=== PATIENT | female | born 1960 | race Caucasian/White ===

== ENCOUNTER 2019-07-19 13:59 | Inpatient (IN) | payer OTHER ==
[~2019-07-19] VITALS: Ht 162.6 cm; Wt 68.9 kg
[2019-07-19] VITALS (11 sets, daily range): BP systolic 130–218; BP diastolic 60–121
[2019-07-19] MEDS ORDERED: ELIQUIS5 MG PO (14:29)
[2019-07-19] MEDS ORDERED: LOPRESSOR50 MG PO (14:29)
[2019-07-19] MEDS ORDERED: PROTONIX40 M2 PO (14:31)
[2019-07-19] MEDS ORDERED: PIPERACIL-TA3.375 GM IV (14:32)
[2019-07-19] MEDS ORDERED: ALPRAZOLAM XR3 MG PO (14:32)
[2019-07-19] MEDS ORDERED: ONDANSETRON HCL4 M3 PO (14:33)
[2019-07-19] MEDS ORDERED: OMEPRAZOLE 20 M20 M1 PO (14:34)
[2019-07-19] MEDS ORDERED: HUMALOG100 UNIT/1 SUBQ (14:34)
[2019-07-19] MEDS ORDERED: PROSOURCE PLUS30 ML PO (14:35)
[2019-07-19] MEDS ORDERED: TRAMADOL 50 MG50 MG PO (14:35)
[2019-07-19] MEDS ORDERED: [UNRECOGNIZED DRUG - OTHER] PO (14:36)
[2019-07-19 15:22] LABS: ABSOLUTE NEUTROPHILS 18.1 thou/uL (1.4-8.2)
[2019-07-19 15:38] LABS: ALBUMIN 1.8 g/dL (3.4-5.0); CALCIUM 9.2 mg/dL (8.5-10.1); CREATININE 0.6 mg/dL (0.6-1.0); METAMYELOCYTES 7 %; TOTAL BILIRUBIN 0.3 mg/dL (<0.1-1.0); TOTAL PROTEIN 6.4 g/dL (6.4-8.2)
[2019-07-19 15:39] LABS: ANISOCYTOSIS 1+
[2019-07-19 15:40] LABS: HEMATOCRIT 23.2 % (37.0-47.0); HEMOGLOBIN 7.6 gm/dL (12.0-15.0); MCH 29.3 pg (26.0-34.0); MCHC 32.8 % (28.0-37.0); MCV 89.3 fL (80.0-100.0); WBC 22.6 thou/uL (4.0-11.0)
[2019-07-19 15:41] LABS: PLATELET COUNT 520 thou/uL (150-400); RDW 15.1 % (10.5-14.5)
[2019-07-19 17:29] LABS: URINE BILIRUBIN NEGATIVE (Negative); URINE BLOOD 3+ (Negative); URINE CLARITY CLEAR; URINE COLOR YELLOW; URINE GLUCOSE-RANDOM* NEGATIVE (Negative); URINE KETONES NEGATIVE (Negative); URINE LEUKOCYTES-REFLEX 2+ (Negative); URINE NITRITE-REFLEX NEGATIVE (Negative); URINE PROTEIN (DIPSTICK) 2+ (Negative); URINE SPECIFIC GRAVITY 1.015 (1.005-1.035); URINE UROBILINOGEN 0.2 E.U./dl (0.2-1.0)
[2019-07-19 17:44] LABS: CASTS None Seen /LPF (None Seen); CRYSTALS None Seen /LPF (None Seen); SQUAMOUS 0-3 Few /LPF (0-3)
[2019-07-19 17:45] LABS: BACTERIA-REFLEX None Seen /HPF (None Seen); YEAST-REFLEX Present (None Seen)
[2019-07-20] VITALS (10 sets, daily range): BP systolic 132–178; BP diastolic 59–86
[2019-07-20 08:03] LABS: HEMOGLOBIN 7.6 gm/dL (12.0-15.0); MCH 28.5 pg (26.0-34.0); MCHC 31.7 g/dL (28.0-37.0); MCV 89.9 fL (80.0-100.0); RBC 2.67 mil/uL (4.20-5.00); RDW 15.2 % (10.5-14.5); WBC 24.7 thou/uL (4.0-11.0)
[2019-07-20 08:08] LABS: CALCIUM 9.4 mg/dL (8.5-10.1); CREATININE 0.5 mg/dL (0.6-1.0); POTASSIUM 3.3 mmol/L (3.5-5.1)
[2019-07-20 11:20] LABS: BE(vivo) 1.5 mmol/L (-2 to +3); PCO2 54.6 mmHg (35.0-45.0); PO2 99.4 mmHg (80.0-100.0)
[2019-07-20 11:21] LABS: pH 7.328 (7.360-7.450)
[2019-07-21] VITALS (14 sets, daily range): BP systolic 135–169; BP diastolic 75–94
[2019-07-21 03:51] LABS: HEMATOCRIT 23.9 % (37.0-47.0); HEMOGLOBIN 7.4 gm/dL (12.0-15.0); MCH 28.4 pg (26.0-34.0); MCHC 31.1 g/dL (28.0-37.0); MCV 91.3 fL (80.0-100.0); RBC 2.62 mil/uL (4.20-5.00); RDW 14.7 % (10.5-14.5); WBC 23.6 thou/uL (4.0-11.0)
[2019-07-21 04:02] LABS: ALBUMIN 1.8 g/dL (3.4-5.0); CALCIUM 8.6 mg/dL (8.5-10.1); CREATININE 0.5 mg/dL (0.6-1.0); POTASSIUM 3.3 mmol/L (3.5-5.1); TOTAL BILIRUBIN 0.3 mg/dL (<0.1-1.0); TOTAL PROTEIN 6.2 g/dL (6.4-8.2)
--- NOTE | 2019-07-21 09:31 | H ---
[facility] [place] [address] HISTORY AND PHYSICAL Name: JAJA CARRILLO Room #: 247-P ADM IN M.R.#: [id number] Admission: 07/19/19 Attend Phys: Jaskaran Argueta Discharge: Date of : 64 Report #: [id number] THIS REPORT FOR: //name// CC: Selvin Styles CHIEF COMPLAINT: Abdominal pain and shortness of breath. HISTORY OF PRESENT ILLNESS: The patient is a 58-year-old female [facility], who was sent to the Emergency Room for evaluation of elevated white count. She has a history of chronic hypercapnic hypoxic respiratory failure and ventilator dependence from [facility] with admission to [facility] just last week for chronic ventilator care. She has been receiving Zosyn for presumed Pseudomonas urinary tract and sputum infection. However, over the weekend, she had an episode of vomiting followed by lab work, which showed a white count of 25,000. There was no other clear etiology for her infection as the chest x-ray really did not show much of an infiltrate on a portable exam from the weekend. She was sent to the Emergency Room for evaluation. I reviewed the LTAC facility records, it appears she had a complicated hospital course and LTAC stay related to respiratory failure, bilateral pulmonary emboli, an upper extremity DVT, GI bleed due to peptic ulcer, numerous respiratory infections, pulmonary nodule and ascites with a previous paracentesis. It appears at the end of her LTAC stay she was being treated empirically for spontaneous bacterial peritonitis. PAST MEDICAL HISTORY: COPD, chronic hypoxic hypercapnic respiratory failure, ventilator dependence. Trach dependent, PEG dependence, ascites, depression, hypertension, GERD, esophageal ulcer and anemia due to gastrointestinal bleed, diabetes type 2, acute kidney injury, protein-calorie malnutrition, anemia of chronic disease, PE, DVT in the upper extremity. PAST SURGICAL HISTORY: Unknown. FAMILY HISTORY: Noncontributory. SOCIAL HISTORY: Prior smoking history. ALLERGIES: BROVANA, CODEINE, MOXIFLOXACIN. MEDICATIONS: Eliquis, Lopressor, Xanax, Zosyn, Zofran, omeprazole, Humalog, tramadol, Protonix and tube feeding. REVIEW OF SYSTEMS: She complains of shortness of breath and anxiety. Otherwise, no chest pain, dysuria, diarrhea, myalgias, syncope. OBJECTIVE: [facility] [address] [place] [address] HISTORY AND PHYSICAL Name: JAJA CARRILLO Room #: [facility] ADM IN M.R.#: [id number] Admission: 07/19/19 Attend Phys: Jaskaran Argueta Discharge: Date of : 64 Report #: [id number] VITAL SIGNS: Temperature 37.7, pulse 120, respirations 22, blood pressure 184/84, O2 sat 98% on the ventilator. GENERAL: She is asleep, but easily arousable. She communicates by whispering over the trach and she can write on a message board. HEAD AND NECK: Unremarkable with trach in place, no bleeding. LUNGS: Clear anteriorly. HEART: Tachycardic, regular rhythm. ABDOMEN: Soft, normoactive bowel sounds. PEG tube in place. EXTREMITIES: 1+ edema throughout. NEUROLOGIC: Global strength about 3/5 throughout. LABORATORY DATA: Reviewed with white count 24, pH 7.33. Urinalysis had blood, leukocytes, red cells, white cells, yeast. Chest x-ray showed emphysema and chronic lung changes, may be small bibasilar infiltrates and effusions. CT abdomen revealed hepatomegaly, fluid collections, which looked extraluminal and loculated with suggestion of an abscess, scattered ascites, potential partial small-bowel obstruction, cholelithiasis and fluid in the colon suggesting diarrhea or enteritis. ASSESSMENT: 1. Sepsis syndrome. 2. Eiocg-es-tibrjzp hypercapnic hypoxic respiratory failure. 3. Chronic obstructive pulmonary disease. 4. Emphysema. 5. Severe protein-calorie malnutrition, albumin 1.8. 6. Hypokalemia. 7. Anemia of chronic disease. 8. Abdominal ascites with possible abscess or consideration of bacterial peritonitis. 9. History of pulmonary embolism. 10. History of upper extremity deep venous thrombosis. 11. History of gastric ulcer. 12. Hypertension. 13. Sinus tachycardia. 14. Leukocytosis related to #1. PLAN: Multiple consultants have assessed her and working out the possibility of an intraabdominal source of her infection and sepsis. At this point, tube feeding will be held and her Eliquis as well in case invasive procedures are needed. We will resume these at her earliest potential based on her history of [facility] [address] [place] [address] HISTORY AND PHYSICAL Name: JAJA CARRILLO Room #: 247-P [facility] IN M.R.#: [id number] Admission: 07/19/19 Attend Phys: Jaskaran Argueta Discharge: Date of : 64 Report #: [id number] venous thromboembolism. Continue ventilator support for now, she remains critically ill. <ELECTRONICALLY SIGNED> By: Corky Gill MD 07/21/19 0931 [id number] Corky Gill MD /nt
[2019-07-21 09:45] LABS: INR 1.2; PROTIME 12.5 Seconds (9.3-11.4)
--- NOTE | 2019-07-21 20:51 | HC ---
[facility] [place] [address] CONSULTATION Name: JAJA CARRILLO Room #: 351-P ADM IN M.R.#: [id number] Admission: 07/19/19 Attend Phys: Jaskaran Argueta Discharge: Date of : 64 Report #: [id number] THIS REPORT FOR: //name// CC: Selvin Styles DATE OF SERVICE: 07/20/2019 INFECTIOUS DISEASE CONSULTATION REASON FOR CONSULTATION: I was asked to evaluate concerning sepsis, leukocytosis in the setting of respiratory failure. HISTORY OF PRESENT ILLNESS: The patient is a 58-year-old who presented from [facility] where she has been on antibiotic therapy for the last 12 days for ventilatory-associated pneumonia. I do not have any microbiology reports at this point. She does have respiratory failure and underlying COPD. She was at [facility] prior to transfer to [facility]. She was diagnosed with suspected spontaneous bacterial peritonitis, although the etiology of this is not clear to me at this point. She has had a gastrostomy tube placement and a tracheostomy. She has been treated for pulmonary embolus with Eliquis. She has had a GI bleed. The patient reports no chest pain. She has been stable on the ventilator, FiO2 of 35%. Denies increased sputum production. No hemoptysis. She denies any nausea or vomiting. She does have abdominal pain and loose stools. She has a tracheostomy, right upper extremity PICC, a PEG tube. She has been complaining of discomfort in her perineum, buttock and intertriginous regions. REVIEW OF SYSTEMS: A 10-point review of system was negative other than what has been described above. PAST MEDICAL HISTORY: Anxiety, bipolar, COPD, diabetes, GI bleed, gastroesophageal reflux, pneumonia, seizure disorder, DVT and PE. ALLERGIES: BROVANA, CODEINE, MOXIFLOXACIN. MEDICATIONS: Included Zosyn, Eliquis, Lopressor, alprazolam, ondansetron, omeprazole, insulin, tramadol prior to her admission. Currently, vancomycin and Zosyn. Added azithromycin last evening. FAMILY HISTORY: Noncontributory. SOCIAL HISTORY: Past smoker, no significant alcohol intake. PHYSICAL EXAMINATION: [facility] [address] [place] [address] CONSULTATION Name: JAJA CARRILLO Room #: 351[facility] IN .R.#: [id number] Admission: 07/19/19 Attend Phys: Jaskaran Argueta Discharge: Date of : 64 Report #: [id number] VITAL SIGNS: She was afebrile, blood pressure was high through the night, now is stable. GENERAL: She was alert and cooperative. SKIN: With Constance dermatitis beneath her breasts, groin and buttock region. No palpable adenopathy. HEENT: Eyes, without scleral icterus. Mouth without mucositis. NECK: Supple with tracheostomy. No surrounding erythema or drainage. LUNGS: Decreased breath sounds bilaterally with no consolidation. HEART: Regular, without murmur, gallop or rub. ABDOMEN: Diffusely tender, no appreciable mass or hepatosplenomegaly. PEG site was unremarkable. There was no guarding or rebound. EXTREMITIES: Without clubbing, cyanosis or edema. Mood was normal with normal affect. NEUROLOGIC: Cranial nerves were intact. Able to move all extremities. LABORATORY STUDIES: Reviewed. Cultures reviewed. IMAGING STUDIES: CT scan of the abdomen and pelvis reviewed. Chest x-ray reviewed. IMPRESSION: 1. A 58-year-old presents with sepsis, leukocytosis, abdominal pain in the setting of treatment for healthcare-associated pneumonia, now day 12, with chronic tracheostomy and respiratory failure. Source of her sepsis at this point seems most likely intra-abdominal. CT scan shows evidence of a pelvic fluid collection with increased uptake around it, consistent with an abscess. Specific cause of this is yet to be determined. 2. Pulmonary embolus history on treatment. 3. Chronic obstructive pulmonary disease with chronic respiratory failure. RECOMMENDATIONS: We will continue broad antibiotic coverage. Aspirate fluid collection for culture. Continue ventilatory management. Add antifungal agent and topical barrier to treat yeast dermatitis. <ELECTRONICALLY SIGNED> By: Kirt Styles MD 07/21/19 2051 [id number] Kirt Styles MD /nt
[2019-07-21 22:24] LABS: HEMATOCRIT 25.4 % (37.0-47.0); HEMOGLOBIN 8.1 gm/dL (12.0-15.0)
[2019-07-22 00:26] VITALS: BP 154/84
[2019-07-22 04:13] VITALS: BP 135/79
[2019-07-22 05:39] LABS: HEMATOCRIT 24.5 % (37.0-47.0); HEMOGLOBIN 7.7 gm/dL (12.0-15.0); MCH 29.1 pg (26.0-34.0); MCHC 31.6 g/dL (28.0-37.0); MCV 92.2 fL (80.0-100.0); RBC 2.65 mil/uL (4.20-5.00); RDW 15.1 % (10.5-14.5); WBC 35.6 thou/uL (4.0-11.0)
[2019-07-22 06:17] LABS: CALCIUM 8.9 mg/dL (8.5-10.1); CREATININE 0.6 mg/dL (0.6-1.0); POTASSIUM 3.9 mmol/L (3.5-5.1); TOTAL BILIRUBIN 0.3 mg/dL (<0.1-1.0); TOTAL PROTEIN 6.7 g/dL (6.4-8.2)
[2019-07-22 07:36] VITALS: BP 146/99
[2019-07-22 11:15] VITALS: BP 167/93
[2019-07-22 16:49] VITALS: BP 130/75
[2019-07-22 19:08] VITALS: BP 127/83
[2019-07-23 00:37] VITALS: BP 129/84
[2019-07-23 03:31] VITALS: BP 145/81
[2019-07-23 05:40] LABS: HEMOGLOBIN 7.4 gm/dL (12.0-15.0); MCH 29.1 pg (26.0-34.0); MCHC 32.1 g/dL (28.0-37.0); MCV 90.6 fL (80.0-100.0); RBC 2.54 mil/uL (4.20-5.00); RDW 15.1 % (10.5-14.5); WBC 23.1 thou/uL (4.0-11.0)
[2019-07-23 05:56] LABS: CALCIUM 8.9 mg/dL (8.5-10.1); CREATININE 0.7 mg/dL (0.6-1.0); POTASSIUM 3.2 mmol/L (3.5-5.1)
[2019-07-23 07:03] VITALS: BP 143/81
[2019-07-23 15:14] VITALS: BP 166/98
[2019-07-23 19:49] VITALS: BP 149/92
[2019-07-24] VITALS (7 sets, daily range): BP systolic 128–165; BP diastolic 79–97
[2019-07-24 04:24] LABS: HEMATOCRIT 21.1 % (37.0-47.0); RBC 2.34 mil/uL (4.20-5.00)
[2019-07-24 04:26] LABS: HEMOGLOBIN 6.8 gm/dL (12.0-15.0); MCH 28.9 pg (26.0-34.0); MCV 90.3 fL (80.0-100.0); PLATELET COUNT 558 thou/uL (150-400); RDW 15.2 % (10.5-14.5); WBC 16.6 thou/uL (4.0-11.0)
[2019-07-24 05:41] LABS: ABSOLUTE NEUTROPHILS 10.8 thou/uL (1.4-8.2); ANISOCYTOSIS 1+; HYPOCHROMASIA 1+; METAMYELOCYTES 4 %; MICROCYTES 1+; MYELOCYTES 6 %; POLYCHROMASIA OCCASIONAL; PROMYELOCYTES 1 %
[2019-07-24 05:42] LABS: LARGE PLATELETS RARE; SCHISTOCYTES RARE
[2019-07-25 00:08] VITALS: BP 138/65
[2019-07-25 05:02] LABS: HEMATOCRIT 23.8 % (37.0-47.0); HEMOGLOBIN 7.6 gm/dL (12.0-15.0)
[2019-07-25 05:30] VITALS: BP 149/87
[2019-07-25 08:09] VITALS: BP 137/71
[2019-07-25 10:47] VITALS: BP 173/87
[2019-07-25 19:15] VITALS: BP 128/85
[2019-07-26 04:24] VITALS: BP 122/74
[2019-07-26 05:12] LABS: CALCIUM 8.6 mg/dL (8.5-10.1); CREATININE 0.6 mg/dL (0.6-1.0)
[2019-07-26 05:15] LABS: POTASSIUM 2.7 mmol/L (3.5-5.1)
[2019-07-26 07:26] VITALS: BP 132/91
[2019-07-26 08:07] LABS: HEMATOCRIT 23.4 % (37.0-47.0); HEMOGLOBIN 7.4 gm/dL (12.0-15.0); MCH 28.8 pg (26.0-34.0); MCHC 31.4 g/dL (28.0-37.0); MCV 91.6 fL (80.0-100.0); RBC 2.55 mil/uL (4.20-5.00); RDW 15.6 % (10.5-14.5); WBC 20.7 thou/uL (4.0-11.0)
[2019-07-26 11:34] VITALS: BP 126/81
[2019-07-26 17:56] VITALS: BP 122/75
[2019-07-26 19:53] VITALS: BP 121/77
[2019-07-27 04:23] VITALS: BP 119/77
[2019-07-27 07:55] VITALS: BP 125/85
[2019-07-27 11:58] VITALS: BP 118/78
[2019-07-27 15:54] VITALS: BP 127/82
== END 2019-07-27 17:02 | DRG 870 ==
LOC: ER 13:59 → ICU 16:44 → 3W 16:44 → EROBS 16:44 → ICU 17:43 → 3W 07-21 15:24
PROVIDERS: Emergency Medicine; Internal Medicine Geriatric Medicine; Internal Medicine Pulmonary Disease; Radiology Vascular & Interventional Radiology; Specialist; ADMIT Internal Medicine
PROC: 5A1955Z Respiratory Ventilation, Greater than 96 Consecutive Hours (ICD-10-PCS; principal; 2019-07-19)
PROC: 0W9G30Z Drainage of Peritoneal Cavity with Drainage Device, Percutaneous Approach (ICD-10-PCS; 2019-07-21)
PROC: 0DJ08ZZ Inspection of Upper Intestinal Tract, Via Natural or Artificial Opening Endoscopic (ICD-10-PCS; 2019-07-22)
DX: A41.9 Sepsis, unspecified organism (principal); J96.21 Acute and chronic respiratory failure with hypoxia; J96.22 Acute and chronic respiratory failure with hypercapnia; E43 Unspecified severe protein-calorie malnutrition; J18.9 Pneumonia, unspecified organism; N39.0 Urinary tract infection, site not specified; R18.8 Other ascites; J91.8 Pleural effusion in other conditions classified elsewhere; R64 Cachexia; B96.5 Pseudomonas (aeruginosa) (mallei) (pseudomallei) as the cause of diseases classified elsewhere; I10 Essential (primary) hypertension; K21.9 Gastro-esophageal reflux disease without esophagitis; E11.9 Type 2 diabetes mellitus without complications; J43.9 Emphysema, unspecified; E87.6 Hypokalemia; D63.8 Anemia in other chronic diseases classified elsewhere; F31.9 Bipolar disorder, unspecified; F41.9 Anxiety disorder, unspecified; G40.909 Epilepsy, unspecified, not intractable, without status epilepticus; K52.9 Noninfective gastroenteritis and colitis, unspecified; R13.10 Dysphagia, unspecified; N73.9 Female pelvic inflammatory disease, unspecified; K25.9 Gastric ulcer, unspecified as acute or chronic, without hemorrhage or perforation; K80.20 Calculus of gallbladder without cholecystitis without obstruction; Z87.891 Personal history of nicotine dependence; Z88.1 Allergy status to other antibiotic agents; Z88.8 Allergy status to other drugs, medicaments and biological substances; Z86.718 Personal history of other venous thrombosis and embolism; Z86.711 Personal history of pulmonary embolism; Z87.19 Personal history of other diseases of the digestive system; Z93.0 Tracheostomy status; Z79.4 Long term (current) use of insulin; Z68.26 Body mass index [BMI] 26.0-26.9, adult; Z93.1 Gastrostomy status; Z87.11 Personal history of peptic ulcer disease; Z79.899 Other long term (current) drug therapy
CPT/HCPCS: 10078; 10203; 10879; 62110; 62900; 70005

== ENCOUNTER 2019-09-13 13:14 | Inpatient (IN) | payer OTHER ==
[~2019-09-13] VITALS: Ht 157.5 cm; Wt 70.5 kg
[2019-09-13] VITALS (22 sets, daily range): BP systolic 96–203; BP diastolic 45–77
[~2019-09-13 13:14] MED LIST: ALPRAZOLAM XR3 MG PO; ELIQUIS5 MG PO; HUMALOG100 UNIT/1 SUBQ; LOPRESSOR50 MG PO; OMEPRAZOLE 20 M20 M1 PO; ONDANSETRON HCL4 M3 PO; PIPERACIL-TA3.375 GM IV; PROSOURCE PLUS30 ML PO; PROTONIX40 M2 PO; TRAMADOL 50 MG50 MG PO; [UNRECOGNIZED DRUG - OTHER] PO
[2019-09-13 13:36] LABS: HEMATOCRIT 28.9 % (37.0-47.0); HEMOGLOBIN 8.2 gm/dL (12.0-15.0); MCH 27.4 pg (26.0-34.0); MCHC 28.5 g/dL (28.0-37.0); MCV 96.2 fL (80.0-100.0); PLATELET COUNT 503 thou/uL (150-400); RBC 3.01 mil/uL (4.20-5.00); RDW 17.5 % (10.5-14.5); WBC 37.4 thou/uL (4.0-11.0)
[2019-09-13 13:38] LABS: ANION GAP 18 mmol/L (7-16); BUN 13 mg/dL (7-18); CALCIUM 10.1 mg/dL (8.5-10.1); CHLORIDE 105 mmol/L (98-107); CO2 19 mmol/L (21-32); CREATININE 1.5 mg/dL (0.6-1.0); GLUCOSE 89 mg/dL (74-106); POTASSIUM 3.5 mmol/L (3.5-5.1); SODIUM 142 mmol/L (136-145)
[2019-09-13 13:47] LABS: TROPONIN-I <0.06 ng/mL (<0.06)
[2019-09-13 13:51] LABS: APTT 46.9 Seconds (24.5-32.8); INR 1.2; PROTIME 12.1 Seconds (9.3-11.4)
[2019-09-13 14:00] LABS: ALBUMIN 2.2 g/dL (3.4-5.0); DIRECT BILIRUBIN 0.1 mg/dL (<0.1-0.2); TOTAL BILIRUBIN 0.2 mg/dL (<0.1-1.0); TOTAL PROTEIN 7.7 g/dL (6.4-8.2)
[2019-09-13 14:05] LABS: MYELOCYTES 1 %
[2019-09-13 14:06] LABS: ABSOLUTE NEUTROPHILS 25.8 thou/uL (1.4-8.2); ANISOCYTOSIS 1+; METAMYELOCYTES 2 %
--- NOTE | 2019-09-13 14:30 | NUR ---
PATIENT ADMITTED TO ICU ROOM 246 FROM ED POST CODE AT 1425. TRACH IN PLACE WITH VENTILATOR ATTACHED. PLACED ON IRRIGATION FLUME LAYER SHOWING ST. RT HERE AND O2 SAT 100% ON THE VENT. ABG'S DRAWN. PATIENT IS AROUSABLE AND WILL FOLLOW SIMPLE COMMANDS. ASSESSMENT COMPLETED.
[2019-09-13 14:40] LABS: BE(vivo) -10.1 mmol/L (-2 to +3); HCO3 19.6 mmol/L (22.0-26.0); PCO2 68.3 mmHg (35.0-45.0); PO2 342.9 mmHg (80.0-100.0); pH 7.076 (7.360-7.450); sO2 99.6 % (92.0-98.0)
[2019-09-13 16:42] LABS: LIPASE 37 U/L (73-393)
[2019-09-13 18:05] LABS: URINE BLOOD 3+ (Negative); URINE COLOR YELLOW; URINE GLUCOSE-RANDOM* NEGATIVE (Negative); URINE KETONES TRACE (Negative); URINE PROTEIN (DIPSTICK) 2+ (Negative); URINE UROBILINOGEN 0.2 E.U./dl (0.2-1.0)
[2019-09-13 18:24] LABS: URINE BILIRUBIN NEGATIVE (Negative); URINE CLARITY CLOUDY; URINE LEUKOCYTES-REFLEX 3+ (Negative); URINE NITRITE-REFLEX POSITIVE (Negative)
[2019-09-13 18:25] LABS: ICTOTEST (BILI CONFIRMATORY) Negative (Negative)
[2019-09-13 18:33] LABS: SQUAMOUS None Seen /LPF (0-3); URINE WBC-REFLEX >25 Many /HPF (0-5)
[2019-09-13 18:34] LABS: BACTERIA-REFLEX 1-9 Few /HPF (None Seen); URINE RBC 3-10 Few /HPF (0-2)
[2019-09-13 18:35] LABS: CRYSTALS None Seen /LPF (None Seen)
--- NOTE | 2019-09-13 21:03 | NUR ---
PATIENT STABLE WITH POC, BLOOD CULTURES DRAWN, AMAYA CATH CHANGED OUT. URINE CULTURES OBTAINED WELL NASAL SWABS AND SENT TO LAB.
[2019-09-13 21:29] LABS: BE(vivo) -10.5 mmol/L (-2 to +3); HCO3 18.8 mmol/L (22.0-26.0); PCO2 61.7 mmHg (35.0-45.0); PO2 142.7 mmHg (80.0-100.0); sO2 97.8 % (92.0-98.0)
[2019-09-13 21:30] LABS: pH 7.101 (7.360-7.450)
[2019-09-14] VITALS (18 sets, daily range): BP systolic 91–124; BP diastolic 49–72
[2019-09-14 05:15] LABS: BE(vivo) -7.2 mmol/L (-2 to +3); HCO3 21.8 mmol/L (22.0-26.0); PO2 124.7 mmHg (80.0-100.0); pH 7.135 (7.360-7.450); sO2 97.3 % (92.0-98.0)
[2019-09-14 05:16] LABS: PCO2 66.3 mmHg (35.0-45.0)
[2019-09-14 06:10] LABS: HEMOGLOBIN 8.4 g/dL (11.1-15.9)
[2019-09-14 06:13] LABS: HEMOGLOBIN 7.2 gm/dL (12.0-15.0); MCH 27.9 pg (26.0-34.0); MCHC 30.1 g/dL (28.0-37.0); MCV 92.6 fL (80.0-100.0); RBC 2.59 mil/uL (4.20-5.00); WBC 33.8 thou/uL (4.0-11.0)
[2019-09-14 06:21] LABS: CALCIUM 9.3 mg/dL (8.5-10.1); CREATININE 1.6 mg/dL (0.6-1.0); POTASSIUM 3.1 mmol/L (3.5-5.1)
[2019-09-14 06:28] LABS: ALBUMIN 2.1 g/dL (3.4-5.0); TOTAL BILIRUBIN 0.3 mg/dL (<0.1-1.0); TOTAL PROTEIN 7.1 g/dL (6.4-8.2)
--- NOTE | 2019-09-14 08:09 | NUR ---
PT AWAKENS TO VOICE. NODS TO BASIC CARE QUESTIONS. NODS YES TO PAIN. FENTANYL GIVEN. SLEEPING THIS AM. CONT ON VENT. PH REMAINS LOW. DR DEL RIO ORDERED ADDITIONAL BICARB IV. LS --DIMINISHED THROUGHOUT LUNG FIELD. ASCITES NOTED. PEG TO SUCTION--THICK GASTRIC CONTENTS. UO INCREASING WITH LESS SEDIMENT. MAINT IV INFUSING. CONT PLAN OF CARE. SEE [facility] FOR ASSESSMENTS AND VITAL SIGNS
--- NOTE | 2019-09-14 08:30 | EKG ---
[place] [address] [address] [facility] [place] [address] ELECTROCARDIOGRAM REPORT Name: JAJA CARRILLO Room #: 246-P ADM IN M.R.#: [id number] Admission: 09/13/19 Attend Phys: Corky Gill MD Discharge: Date of : 64 Report #: [id number] THIS REPORT FOR: //name// [facility] ED Test Date: 2019-09-13 Test Time: 13:26:18 Pat Name: JAJA CARRILLO Department: Room: 246 Gender: F Marine Architect: DINESH : 1960 Requested By: Isreal Prince Order Number: [id number] MD: Ozzie Petit Measurements Intervals Dante Rate: 130 P: 64 AZ: 126 QRS: 37 QRSD: 50 T: 72 QT: 316 QTc: 465 Interpretive Statements Sinus tachycardia Low voltage Abnormal R-wave progression, early transition Nonspecific ST and T wave abnormality No previous ECG available for comparison Electronically Signed On 09-14-2019 8:30:00 ASSISTANT ELEMENTARY TEACHER by Ozzie Petit [email or web address] <ELECTRONICALLY SIGNED> By: Ozzie Petit MD, [facility] 09/14/19 0830 25 Ozzie Petit MD, FAC /EPI
--- NOTE | 2019-09-14 09:32 | NUR ---
When ready to use PEG for feeding, recommend glucerna 1.2 at 25ml/hr with goal rate of 55 ml/hr
--- NOTE | 2019-09-14 12:39 | H ---
[facility] [place] [address] HISTORY AND PHYSICAL Name: JAJA CARRILLO Room #: 246-P ADM IN M.R.#: [id number] Admission: 09/13/19 Attend Phys: Corky Gill MD Discharge: Date of : 64 Report #: [id number] THIS REPORT FOR: //name// CC: Selvin Gill DATE OF SERVICE: 09/13/2019 CHIEF COMPLAINT: Abdominal pain and shortness of breath. HISTORY OF PRESENT ILLNESS: The patient is a 58-year-old female, who was admitted through the ER after being sent over from [facility] for evaluation of abdominal pain. She had plans for an outpatient CT of the abdomen today in relation to a chronic pelvic abscess. She had a previous complicated hospital stay several months ago related to respiratory failure, bilateral pulmonary emboli, upper extremity DVT, GI bleed due to peptic ulcer, numerous respiratory infections, pulmonary nodule, ascites, and bacterial peritonitis related to a pelvic abscess. She has a history of COPD and was unable to wean from the ventilator. Her abdominal symptoms have just been treated in the past with the IV antibiotics. In the ER, she had cardiopulmonary arrest and was successfully resuscitated with a routine CPR and epinephrine. PAST MEDICAL HISTORY: COPD, chronic hypoxic hypercapnic respiratory failure, ventilator dependence, trach dependence, PEG dependence, ascites, pelvic abscess, depression, hypertension, GERD, esophageal ulcer with a history of anemia and GI bleed, diabetes type 2, a history of acute kidney injury, history of PE, and history of DVT. PAST SURGICAL HISTORY: Unknown. FAMILY HISTORY: Unknown. SOCIAL HISTORY: Unobtainable. ALLERGIES: BROVANA, CODEINE, and MOXIFLOXACIN. MEDICATIONS: Please see the intermediate list. REVIEW OF SYSTEMS: She is unable to give a review. PHYSICAL EXAMINATION: VITAL SIGNS: Pulse 129, blood pressure 100/52, respirations 21, and O2 sat 100% on the ventilator. GENERAL: She looks chronically ill. She is not alert. HEAD AND NECK: She has agonal respiratory pattern. Trach in place. LUNGS: Grossly clear anteriorly. She has some upper airway congestion. [facility] [address] [place] [address] HISTORY AND PHYSICAL Name: JAJA CARRILLO Room #: 246-P [facility] IN M.R.#: [id number] Admission: 09/13/19 Attend Phys: Corky Gill MD Discharge: Date of : 64 Report #: [id number] HEART: Tachycardic, regular. ABDOMEN: Protuberant, soft, and hypoactive bowel sounds. No appreciable rebound tenderness. EXTREMITIES: Show 2+ edema throughout. There is some bruising over the left chest wall and left arm. NEUROLOGIC: She follows no neuro exam. LABORATORY DATA: Reveal a white count is 37. Hemoglobin is 8 and creatinine is 1.5. ASSESSMENT: 1. Cardiac arrest. 2. Tpprn-ol-icnypww hypoxic hypercapnic respiratory failure. 3. Sepsis. 4. Abdominal pain. 5. History of abdominal abscess. 6. Chronic obstructive pulmonary disease. 7. Ventilator dependence. 8. Anemia of chronic disease. 9. History of abdominal abscess. PLAN: I have spoken to the ER physician and given her history of PE and the findings on her left chest along with the cardiopulmonary arrest, I think she has to have a pulmonary embolus ruled out and therefore, a CT of the chest will be obtained. She had plans for a CT abdomen, but her abdomen is distended and concern with aspiration with the gastric contrast and therefore, we will proceed with a noncontrast CT of the abdomen. We will ask the Pulmonary and ID services to see her. She remains critically ill on top of a chronically ill state from COPD, chronic respiratory failure, and a chronic abdominal abscess. <ELECTRONICALLY SIGNED> By: Corky Gill MD 09/14/19 1239 1345 1415 Corky Gill MD /nt
[2019-09-14 15:15] LABS: BF NUCLEATED CELLS 259; BF RBC 84
[2019-09-14 15:16] LABS: CLARITY CLEAR; COLOR YELLOW; SOURCE ABDOMINAL; TOTAL VOLUME 60 mL
[2019-09-14 15:52] LABS: BF NEUTROPHILS 25
[2019-09-14 15:53] LABS: BF MACROPHAGE 12
--- NOTE | 2019-09-14 17:02 | NUR ---
PT HAS AWAKE PERIODS, SEEMS TO NOD APPROPRIATELY WHEN ASKED YES/NO QUESTIONS. PAIN MEDS GIVEN, CPOT/FACES SCALES USED. RIGHT ABDOMINAL DRESSING CHANGED POST PARACENTESIS, DRESSING SATURATED WITH SEROUS DRAINAGE. NO TELEPHONE CONTACT WITH FAMILY, ATTEMPTED TO CALL FOR CONSENT/UPDATE BUT PHONE NUMBER IS INCORRECT OR VOICEMAIL IS FULL. URINE OUTPUT MARGINAL, VITAL SIGNS STABLE, WILL MONITOR CLOSELY.
--- NOTE | 2019-09-14 23:26 | HC ---
[facility] [place] [address] CONSULTATION Name: JAJA CARRILLO Room #: 246-P ADM IN M.R.#: [id number] Admission: 09/13/19 Attend Phys: Corky Gill MD Discharge: Date of : 64 Report #: [id number] THIS REPORT FOR: //name// CC: Selvin Gill DATE OF SERVICE: 09/13/2019 INFECTIOUS DISEASE CONSULTATION REASON FOR CONSULTATION: I was asked to evaluate concerning post-code and sepsis. HISTORY OF PRESENT ILLNESS: The patient was a 58-year-old with chronic ventilatory requirement in a chcf unit at [facility]. She had issues with nausea and vomiting. She was seen previously in July of last year with sepsis complicating respiratory failure. She had been on treatment for ventilatory associated pneumonia. She did have evaluation by General Surgery, GI service, pulmonary service during that hospital stay. She had a small fluid collection in her pelvis, which was drained and was culture negative and was thought may have been a hematoma. She had ongoing abdominal pain, which was never fully explained. She had had upper endoscopy showing gastric erosion underneath her gastrostomy tube with a previous endoclip found at lesser curvature of the stomach. No colonoscopy was performed. CT scan did not show any residual evidence of abscess or bowel wall thickening. Although her white count remained elevated, no further intervention was recommended. She completed approximately 3 weeks of antibiotic therapy and was discharged back to chcf. Further details post-discharge were not available other than inability to keep any of her PEG tube feeding down over the last several days. She was transported to [facility] for CT imaging. While in transport, she had a cardiorespiratory arrest. She was bradycardic. She required compressions and epinephrine and has been resuscitated. She has had bilateral pulmonary emboli and upper extremity DVT. She has had ongoing ascites. She has underlying COPD. The patient was unable to give me further details of her history; however, she was awake and responsive. REVIEW OF SYSTEMS: Ten-point review was negative other than what has been described above. She does have an indwelling Cooper catheter and a PEG tube in place and she has a tracheostomy, on FiO2 of 60%. PAST MEDICAL HISTORY: COPD, respiratory dependent, PEG tube, ascites, depression, hypertension, gastroesophageal reflux, GI bleed with gastric ulcer, diabetes, acute kidney injury, DVT, PE, bipolar disorder, seizure disorder. ALLERGIES: BROVANA, CODEINE, MOXIFLOXACIN. [address] [address] CONSULTATION Name: JAJA CARRILLO Room #: 246-P [facility] IN M.R.#: [id number] Admission: 09/13/19 Attend Phys: Corky Gill MD Discharge: Date of : 64 Report #: [id number] MEDICATIONS: As noted on her MAR, which were reviewed. Includes apixaban, vancomycin and Zosyn. FAMILY HISTORY: Noncontributory. SOCIAL HISTORY: She is a past smoker. She has no significant alcohol intake. PHYSICAL EXAMINATION: VITAL SIGNS: Temperature is 98.1, heart rate 128, blood pressure 132/61. She was on the ventilator, FiO2 of 60%. She was pale. She was arousable and did follow commands. She stated that she has abdominal pain. SKIN: Without rash. No decubitus. No palpable adenopathy. HEENT: Eyes without scleral icterus. Mouth without mucositis. Tracheostomy without erythema or drainage. NECK: Supple. LUNGS: Coarse breath sounds bilaterally. HEART: Regular without appreciable murmur, gallop or rub. ABDOMEN: Distended, mild diffuse tenderness. PEG site was without erythema or drainage. She was edematous. GENITOURINARY: External genitalia unremarkable with indwelling Cooepr catheter. RECTAL: Examination not performed. EXTREMITIES: Without clubbing or cyanosis. She did have peripheral edema of 4+. She was able to move all extremities. NEUROLOGIC: Cranial nerves intact. She was lethargic. LABORATORY STUDIES: ABG on 100% FiO2 showed a pO2 of 342, pCO2 of 68, pH 7.076, lactate 1.6, bicarbonate of 19.6. Hemoglobin 8.2, WBC 37.4, platelet count 503,000. She had 11% bands, 2% metamyelocytes, 1% myelocytes. Liver function test normal. Creatinine 1.5. Chest x-ray, right basilar atelectasis, COPD. CT scan of the abdomen and pelvis, moderate ascites, diffuse abdominal wall edema. Gallstones. CT of the chest, left lower lobe pneumonia, panlobular emphysema, abdominal wall edema. IMPRESSION: Initial diagnosis is post-cardiorespiratory arrest. Persistent abdominal pain with ileus versus gastric outlet issues with negative CT scan identifying underlying issue. She has chronic leukocytosis. Workup during her last hospital stay did not identify a specific cause. It was felt most likely related to her abdominal process, but was inconclusive. She was deemed not a surgical candidate for exploration. 1. Respiratory failure. 2. Pulmonary emboli history. 3. Left lower lobe pneumonia, healthcare associated, ventilatory associated. 4. Anasarca and moderate ascites. RECOMMENDATIONS: Continue broad antibiotic coverage. Check peripheral blood [address] [address] CONSULTATION Name: JAJA CARRILLO Room #: 246-P ADM IN M.R.#: [id number] Admission: 09/13/19 Attend Phys: Corky Gill MD Discharge: Date of : 64 Report #: [id number] smear, LDH, tap ascites. GI service followup. Ventilatory support. Await cultures. Maintain treatment in the Intensive Care Unit. <ELECTRONICALLY SIGNED> By: Kirt Styles MD 09/14/19 2326 [id number] [id number] Kirt Styles MD /nt
[2019-09-15] VITALS (23 sets, daily range): BP systolic 96–129; BP diastolic 48–72
[2019-09-15 05:24] LABS: HEMATOCRIT 21.2 % (37.0-47.0); HEMOGLOBIN 6.6 gm/dL (12.0-15.0); MCHC 31.3 g/dL (28.0-37.0); MCV 89.3 fL (80.0-100.0); RBC 2.37 mil/uL (4.20-5.00); RDW 16.8 % (10.5-14.5)
[2019-09-15 06:02] LABS: CALCIUM 8.3 mg/dL (8.5-10.1); CREATININE 1.6 mg/dL (0.6-1.0)
[2019-09-15 06:14] LABS: POTASSIUM 2.9 mmol/L (3.5-5.1)
--- NOTE | 2019-09-15 07:28 | NUR ---
Pt slept intermittently through noc. Continues to be asynchronous with vent despite sedation. Paracentesis site saturated bed pads with copious amounts of drainage. Ostomy appliance placed and bag filled and ruptured within 1 hour. Drainage bag then placed to dependent drainage and 1100 ml clear, yellow fluid out. Would estimate close to 3L total output from paracentesis site. Anasarca to torso/pelvis. Ext elevated on pillows and pt turned q2 hours. Dr. Styles and Bridget notified of this mornings labs. Orders received and carried out. Spoke with pt's daughter who seems overwhelmed in understanding plan of care or her mother's condition. States she is doing her best, but has 3 young children at home and doesn't have the gas money to come and visit her mother. States she has not seen her in past few months. Encouraged her to try and be as involved in her mom's care as she is able to. Pt slowly progressing towards goals.
--- NOTE | 2019-09-15 08:29 | NUR ---
CM ASSESSMENT: ADMITTED FROM [facility] FOR EVAL OF ABD WITH HX OF CHRONIS ABD ABSCESS AND HAD CARDIOPULM ARREST. HX OF TRACH AND UNWEANABLE A ND RESIDE AT [facility] VENT UNIT. BASELINE FOLLOWS COMMANDS AND ABLE TO COMMUNICATE. DEPENDENT FOR ADLS. DTR SERVANDO IS DPOA [phone]. PLAN TO RETURN TO [facility] ER LTAC OR LTC WHEN MEDICALLY READY. [facility] ADMISSIONS UPDATED AND REQUESTED DC BEADER FAX UPDATED CLINICAL TO [facility].
--- NOTE | 2019-09-15 08:30 | NUR ---
Assumed care at 0700. PT was lying in bed. Able to nod her head to answer yes and no questions. PT also tries to mouth words to communicate with staff. Large amounts of drainage was noted from the pericentesis site. It also appears yellow and similar to urine. Dr. Rodriguez was notified and new orders were acknowledged. PT is currently resting and appears comfortable. Fall precautions in place. Nurse will continue to monitor.
[2019-09-15 09:41] LABS: SOURCE ABDOMINAL
--- NOTE | 2019-09-15 13:27 | NUR ---
Dr. Gill paged to ICU in regards to resuming Eliquis on PT. Her hgb was noted to be 6.6, hematocrit is 21.2. Nurse asked if provider would like to continue medication or hold due to lab values. Provider ordered to continue medication as ordered. Nurse verbalized understanding.
[2019-09-15 14:01] LABS: MAGNESIUM 1.7 mg/dL (1.8-2.4)
--- NOTE | 2019-09-15 14:37 | NUR ---
FAXED CLINICAL UPDATE TO [facility] SPOKE WITH ESCOBAR IN ADM SHE RECEIVED UPDATE.
[2019-09-15 15:07] LABS: BODY FLUID ALBUMIN 1.7 g/dL (Not Estab.); BODY FLUID AMYLASE 17 U/L (()); BODY FLUID GLUCOSE 177 mg/dL (()); BODY FLUID LDH 63 IU/L (()); BODY FLUID PROTEIN 3.7 g/dL (())
[2019-09-15 15:38] LABS: HEMOGLOBIN 6.7 gm/dL (12.0-15.0)
[2019-09-15 15:40] LABS: HEMATOCRIT 21.2 % (37.0-47.0)
[2019-09-15 15:55] LABS: % SATURATION 20 % (20-39); IRON 24 ug/dL (50-170); TIBC 123 ug/dL (250-450)
[2019-09-15 19:46] LABS: SOURCE ABDOMINAL
[2019-09-15 21:32] LABS: HEMATOCRIT 25.7 % (37.0-47.0); HEMOGLOBIN 8.3 gm/dL (12.0-15.0)
[2019-09-16] VITALS (21 sets, daily range): BP systolic 96–143; BP diastolic 45–81
[2019-09-16 04:52] LABS: HEMATOCRIT 27.5 % (37.0-47.0); HEMOGLOBIN 8.7 gm/dL (12.0-15.0); MCH 28.3 pg (26.0-34.0); MCHC 31.7 g/dL (28.0-37.0); MCV 89.3 fL (80.0-100.0); RBC 3.08 mil/uL (4.20-5.00); RDW 15.9 % (10.5-14.5); WBC 12.9 thou/uL (4.0-11.0)
[2019-09-16 05:13] LABS: CREATININE 1.5 mg/dL (0.6-1.0); MAGNESIUM 1.6 mg/dL (1.8-2.4); POTASSIUM 3.2 mmol/L (3.5-5.1)
[2019-09-16 06:01] LABS: CALCIUM 8.8 mg/dL (8.5-10.1)
[2019-09-16 10:41] LABS: MAGNESIUM 2.4 mg/dL (1.8-2.4); POTASSIUM 3.2 mmol/L (3.5-5.1)
--- NOTE | 2019-09-16 13:29 | NUR ---
FAXED CLINICAL UPDATE (GI CONSULT) AND MED LIST TO [facility] SPOKE WITH ORA IN ADM HE RECEIVED UPDATE. DP TO FOLLOW.
[2019-09-16 15:32] LABS: HEMATOCRIT 28.8 % (37.0-47.0); HEMOGLOBIN 9.3 gm/dL (12.0-15.0)
--- NOTE | 2019-09-16 16:06 | PATH ---
[facility] [address] [place] [address] PATHOLOGY RPT PROCEDURE Name: JAJA CARRILLO Room #: 246-P ADM IN M.R.#: [id number] Admission: 09/13/19 Date of : 64 Discharge: Report #: [id number] Path Case #: [id number] Note [facility] Accession Number: [id number] TESTS RESULT FLAG UNITS REF RANGE LAB Clinician Provided Cytology Information No. of containers..01 Other (Miscellaneous) Source: ASCITES FLUID DIAGNOSIS: 02 ASCITES FLUID NEGATIVE FOR MALIGNANT CELLS. MESOTHELIAL CELLS ARE PRESENT. SCANT CELLULARITY. THIS INTERPRETATION INCLUDES EVALUATION OF A CELL BLOCK. Pathologist ICD10: 02 R18.8 Signed out by: Jessie Angeles MD, Pathologist NPI- [id number] Performed by: Ephraim Kaur Manual Tester ([facility]) Gross description: 01 24ML, LT GREEN, CLEAR /LCS 09/15/2019 1321 Local FLAG LEGEND: L-Low Normal,H-High Normal,LL-Alert Low,HH-Alert High <-Panic Low,>-Panic High,A-Abnormal,AA-Critical Abnormal Performed at: [address] [place] [address] Jadon Wadsworth MD, [address] [address] Jessie Angeles MD, Specimen Comment: A courtesy copy of this report has been sent to [phone] Specimen Comment: [id number] Specimen Comment: Report sent to / DR FELICIANO Performed at: [address], [place], [place] [id number] MD Jadon Wadsworth MD Phone: [phone]
[2019-09-17] VITALS (21 sets, daily range): BP systolic 99–142; BP diastolic 58–79
[2019-09-17 04:56] LABS: HEMATOCRIT 27.1 % (37.0-47.0); HEMOGLOBIN 8.7 gm/dL (12.0-15.0)
--- NOTE | 2019-09-17 05:40 | NUR ---
PATIENT ALERT AND ORIENTED X4, PAIN MILDLY CONTROLLED WITH MEDICATION. LOWEST PAIN LEVEL ACHIEVED IS 4/10. RIGHT DRAIN SITE INTACT 2100 ML OUTPUT, DR. FELICIANO AWARE OF INCREASED OUTPUT. AWAITING LABWORK. AMAYA PATIENT AND DRAINING. PEG TUBE TO LIS. CHRONIC TRACHEOSTOMY AND VENTILATOR, 40% FIO2. PATIENT RESTLESS THROUGHTOUT THE NIGHT, INTERMITTENTLY FALLS ASLEEP FOR LESS THAN 2 HOURS. PATIENT REQUESTING SLEEPING MEDICATION THIS MORNING, WILL NOTIFY MEDICAL TEAM. ALLOWED TO TURN Q2H AND FREQUENT ORAL CARE. PATIENT REFUSED BATH. PLAN OF CARE DISCUSSED WITH PATIENT. NO SIGN OF ACUTE DISTRESS NOTED AT THIS TIME. AWAITING APPROVAL FROM GI DOCTOR TO RESTART TUBE FEEDING.
--- NOTE | 2019-09-17 09:56 | NUR ---
FAXED CLINICAL UPDATE TO [facility] SPOKE WITH ORA IN ADM HE RECEIVED UPDATE.
--- NOTE | 2019-09-17 10:05 | NUR ---
FOLLOWING FOR DC PLANNING. CLINICAL INFO REVIEWED. DISCUSSED WITH GI GAMES DEALER AND DR. GARCIA. PLAN FOR LIKELY DC BACK TO [facility] OF [facility] THIS WEEKEND. UPDATE TO [facility] ADMISSIONS AND REQUESTED DC CARD PAINTER FAX CLINICAL. [facility] ADMISSIONS WILL CONFIRM [facility]ICARE ACUTE DAYS FOR LT[facility] STAY AND NOTIFY CM. INDUSTRIAL SAFETY AND HEALTH TECHNICIAN UPDATED.
--- NOTE | 2019-09-17 17:04 | NUR ---
ASSUMED PT CARE AT 1900. VSS. PT A&0X4, SHE COMMUNICATED BY WRITING HER ANSWERS AND MOUTHING HER WORDS, INTERDRY APPLIED TO PANUS, GROIN AND UNDER BREAST FOLDS. ADEQUATE URINE OUTPUT SHE HAD APPROX 650 THS SHIFT. PT HAS 850 OUT FROM HER PARACENTHESIS SITE THIS SHIFT. PT'S MAIN CONCERN THIS SHIFT WAS PAIN MANAGEMENT, WHICH WAS DONE WITH Q2 FENTANYL AND 26 OXYCODONE. TUBE FEED ALSO STARTED THIS SHIFT AT 30ML/R. PT IS STABLE. RESTING CURRENTLY IN ROOM. PT WILL PROBABLY TRANSFER BACK OUT TO [facility] SE[facility] OF HER FACILITY; [facility].
[2019-09-18] VITALS (10 sets, daily range): BP systolic 89–141; BP diastolic 52–80
[2019-09-18 04:43] LABS: HEMATOCRIT 27.4 % (37.0-47.0); HEMOGLOBIN 8.6 gm/dL (12.0-15.0); MCH 28.5 pg (26.0-34.0); MCHC 31.5 g/dL (28.0-37.0); MCV 90.6 fL (80.0-100.0); RBC 3.02 mil/uL (4.20-5.00); RDW 16.2 % (10.5-14.5); WBC 12.3 thou/uL (4.0-11.0)
[2019-09-18 04:47] LABS: BUN 10 mg/dL (7-18); CALCIUM 8.3 mg/dL (8.5-10.1); CHLORIDE 101 mmol/L (98-107); CREATININE 1.3 mg/dL (0.6-1.0); GLUCOSE 135 mg/dL (74-106); POTASSIUM 3.2 mmol/L (3.5-5.1); SODIUM 143 mmol/L (136-145)
[2019-09-18 04:53] LABS: CO2 > 45 mmol/L (21-32)
--- NOTE | 2019-09-18 07:55 | NUR ---
chart check. report given to ARISTIDES Hung.
--- NOTE | 2019-09-18 10:14 | NUR ---
assessments as documented. vss. pt resting comfortably in bed through out the morning. transfer orders recieved. report given to rika yanez rn.
[2019-09-18 16:11] LABS: BODY FLUID ALBUMIN 0.9 g/dL (Not Estab.); BODY FLUID CREATININE 1.4 mg/dL (Not Estab.)
[2019-09-19 00:26] VITALS: BP 89/54
--- NOTE | 2019-09-19 01:35 | NUR ---
PATIENT IS ALERT AND ORIENTED. PATIENT IS ON NONVERBAL DUE TO TRACH AND VENT DEPENDENTCY. PATIENT IS Q2 TURN OFTEN REFUSES TURNS. PATIENT REFUSED ORAL CARE AND BATH. PART BATH WAS GIVEN. PATIENTS LBM 16TH. PATIENTS DRAIN IS INTACT. PATIENT IS Q6H ACCUCHECK. PATIENT IS TUBE FEED. PAIN MEDICATION IS RESTING COMFORTABLY. PATIENT HAS CHRONIC AMAYA. PATIENT IS PROGRESSING TO GOALS
[2019-09-19 04:21] VITALS: BP 103/76
[2019-09-19 04:55] LABS: HEMOGLOBIN 8.5 gm/dL (12.0-15.0); MCHC 31.7 g/dL (28.0-37.0); MCV 91.4 fL (80.0-100.0); RBC 2.95 mil/uL (4.20-5.00); RDW 16.4 % (10.5-14.5); WBC 9.1 thou/uL (4.0-11.0)
[2019-09-19 05:17] LABS: ALBUMIN 1.7 g/dL (3.4-5.0); BUN 12 mg/dL (7-18); CALCIUM 8.2 mg/dL (8.5-10.1); CHLORIDE 98 mmol/L (98-107); CREATININE 1.3 mg/dL (0.6-1.0); GLUCOSE 125 mg/dL (74-106); POTASSIUM 3.9 mmol/L (3.5-5.1); SGOT 19 U/L (15-37); SGPT 8 U/L (30-65); SODIUM 144 mmol/L (136-145); TOTAL BILIRUBIN 0.3 mg/dL (<0.1-1.0); TOTAL PROTEIN 5.7 g/dL (6.4-8.2)
[2019-09-19 05:23] LABS: CO2 > 45 mmol/L (21-32)
[2019-09-19 05:39] LABS: BE(vivo) 15.6 mmol/L (-2 to +3); HCO3 42.2 mmol/L (22.0-26.0); PCO2 64.7 mmHg (35.0-45.0); PO2 107.6 mmHg (80.0-100.0); pH 7.432 (7.360-7.450); sO2 97.9 % (92.0-98.0)
[2019-09-19 07:39] VITALS: BP 128/90
--- NOTE | 2019-09-19 09:01 | NUR ---
Vomiting tube feed although only ten ml residual on 0800 check. estimated 50-100 emesis resulting. Tube feed turned off. Hygiene needs met. Last zofran given @ 0400.
[2019-09-19 10:59] VITALS: BP 101/72
[2019-09-19 15:09] VITALS: BP 115/98
[2019-09-19 20:00] VITALS: BP 106/78
[2019-09-20 04:48] VITALS: BP 130/78
--- NOTE | 2019-09-20 04:55 | NUR ---
PT MAKING POOR PROGRESS TOWARDS GOALS. TUBE FEEDING AT 20 ML/HR. PT C/O NAUSEA AND STATING SHE FEELS LIKE HAS TO VOMIT. NO EMESIS NOTED AND PT WAS GIVEN IV ZOFRAN. ATTEMPTED TO TURN TUBE FEEDING BACK ON AFTER AN HOUR BUT PT REFUSED. WITH AM REASSESSMENT PT STILL REPORTING THAT SHE FEELS A LITTLE NAUSEOUS AND IS REFUSING TO ALLOW THE TUBE FEEDING TO BE TURNED BACK ON. IV DILAUDID GIVEN FOR 8/10 GENERALIZED ABD PAIN. PT HAS REPORTED 8/10 ABD PAIN EACH TIME. SHE DOES STATE THAT THE PAIN WILL BRIEFLY GO DOWN TO 5-6/10. SHE ALSO REPORTS THAT HER ABDOMEN FEELS "TIGHT" TO HER. DID AT THIS TIME RESUME THE TUBE FEEDING AT 10 ML/HR WILL MOVE TO 20 ML/HR IN THE NEXT HOUR.
[2019-09-20 07:30] VITALS: BP 115/72
--- NOTE | 2019-09-20 08:41 | 2DMMODE ---
[facility] [address] [place] [address] 2 D/M-MODE ECHOCARDIOGRAM Name: JAJA CARRILLO Room #: 352-P ADM IN M.R.#: [id number] Admission: 09/13/19 Attend Phys: Jaskaran Lopez Discharge: Date of : 64 Report #: [id number] THIS REPORT FOR: //name// APPROVED REPORT Study performed: 09/20/2019 07:56:22 EXAM: Comprehensive 2D, Doppler, and color-flow Echocardiogram Patient Location: Bedside Room #: [facility] Status: routine BSA: 1.70 HR: 95 bpm BP: 115/72 mmHg Rhythm: NSR Other Information Study Quality: Fair/Limited window availability Technically limited study due to patient on trache, limited mobility. Indications CHF. Status post cardiopulmonary arrest. Hx: Afib, COPD, HTN, DM. 2D Dimensions RVDd: 28.37 mm IVSd: 8.08 (7-11mm) LVOT Diam: 20.01 (18-24mm) LVDd: 36.17 mm PWd: 8.49 (7-11mm) LVDs: 26.45 (25-40mm) Aortic Root: 26.55 mm Volumes Left Atrial Volume (Systole) Single Plane 4CH: 18.57 mL Single Plane 2CH: 14.30 mL LA ESV Index: 11.00 mL/m2 Aortic Valve AoV Peak Moshe.: 1.12 m/s AO Peak Gr.: 5.03 mmHg LVOT Max P.21 mmHg LVOT Max V: 0.74 m/s DINA Vmax: 2.08 cm2 Mitral Valve [facility] [address] [place] [address] 2 D/M-MODE ECHOCARDIOGRAM Name: JAJA CARRILLO Room #: 352-P [facility] IN .R.#: [id number] Admission: 09/13/19 Attend Phys: Jaskaran Lopez Discharge: Date of : 64 Report #: [id number] E/A Ratio: 1.2 MV Decel. Time: 135.85 ms MV E Max Moshe.: 0.81 m/s MV A Moshe.: 0.66 m/s MV PHT: 39.40 ms IVRT: 62.28 ms Pulmonary Valve PV Peak Moshe.: 0.86 m/s PV Peak Gr.: 2.99 mmHg Tricuspid Valve TR Peak Moshe.: 2.64 m/s RAP Estimate: 10.00 mmHg TR Peak Gr.: 28.00 mmHg PA Pressure: 38.00 mmHg Left Ventricle The left ventricle is normal size. There is normal LV segmental wall motion. There is normal left ventricular wall thickness. Left ventricular systolic function is normal. LVEF is 50-55%. Moderate diastolic dysfunction is present (pseudonormal filling). Right Ventricle The right ventricle is normal size. The right ventricular systolic function is normal. Atria The left atrium size is normal. The right atrium size is normal. Aortic Valve The aortic valve is normal in structure. No aortic regurgitation is present. There is no aortic valvular stenosis. Mitral Valve The mitral valve is normal in structure. There is no mitral valve regurgitation noted. No evidence of mitral valve stenosis. Tricuspid Valve The tricuspid valve is normal in structure. Mild tricuspid regurgitation. Estimated PAP is 35-40mmHg. Pulmonic Valve Pulmonic valve is not well visualized. Great Vessels The aortic root is normal in size. Ascending aorta is not well [facility] [address] [place] [address] 2 D/M-MODE ECHOCARDIOGRAM Name: JAJA CARRILLO Room #: 352-P ADM IN M.R.#: [id number] Admission: 09/13/19 Attend Phys: Jaskaran Lopez Discharge: Date of : 64 Report #: [id number] visualized. IVC is borderline dilated and collapses <50% with inspiration. Pericardium Small pericardial effusion. <Conclusion> The left ventricle is normal size. There is normal left ventricular wall thickness. Left ventricular systolic function is normal. Moderate diastolic dysfunction is present (pseudonormal filling). The right ventricle is normal size. The left atrium size is normal. The aortic valve is normal in structure. There is no mitral valve regurgitation noted. Mild tricuspid regurgitation. Estimated PAP is 35-40mmHg. <ELECTRONICALLY SIGNED> By: Yifan Mcdaniel MD 09/20/19840 0 0 Yifan Mcdaniel MD /INF
[2019-09-20 11:50] VITALS: BP 109/78
[2019-09-20 12:11] LABS: ADENOVIRUS Negative (Negative); INFLUENZA A Negative (Negative); INFLUENZA B Negative (Negative); METAPNEUMOVIRUS Negative (Negative); PARAINFLUENZA 1 Negative (Negative); PARAINFLUENZA 2 Negative (Negative); PARAINFLUENZA 3 Negative (Negative); RHINOVIRUS Negative (Negative); RSV A Negative (Negative); RSV B Negative (Negative)
--- NOTE | 2019-09-20 14:06 | NUR ---
SW reviewed chart and spoke with nursing and attending physician. Pt was transferred to from ICU. Plan is for pt to return to [facility] when medically stable. SW faxed clinical updates to [facility] for review. SW updated [facility] liaison. MANSI left voice message for pt's dtr, Angelica, to provide update and notify of anticipated discharge back to [facility]. [facility] is following to assist as needed with discharge planning.
[2019-09-20 16:20] VITALS: BP 102/61
--- NOTE | 2019-09-20 16:33 | NUR ---
ASSUMED CARE OF PT AT 0700. PT TO SELF AND SITUATION. REPORTING NAUSEA. LOTS OF AIR WHEN CHECKING RESIDUAL, BUT TF RES LESS THAN 20 CC. INCREASED TOLERATED. LARGE DARK BROWN BOWEL MOVEMENT TODAY. IV ABX INFUSING PER ORDER. TURNED PRN, REFUSING AT TIMES, SHE SAYS DUE TO DISCOMFORT. WILL CONT TO MONITOR.
[2019-09-20 20:22] VITALS: BP 114/68
[2019-09-21 04:34] VITALS: BP 96/57
[2019-09-21 06:17] LABS: HEMATOCRIT 25.1 % (37.0-47.0); HEMOGLOBIN 7.8 gm/dL (12.0-15.0); MCH 28.7 pg (26.0-34.0); MCHC 31.2 g/dL (28.0-37.0); MCV 91.8 fL (80.0-100.0); RBC 2.74 mil/uL (4.20-5.00); WBC 9.5 thou/uL (4.0-11.0)
[2019-09-21 06:34] LABS: CALCIUM 8.7 mg/dL (8.5-10.1); CREATININE 1.6 mg/dL (0.6-1.0); POTASSIUM 4.3 mmol/L (3.5-5.1)
[2019-09-21 08:05] VITALS: BP 146/96
[2019-09-21 11:00] LABS: DIRECT BILIRUBIN 0.1 mg/dL (<0.1-0.2); SGOT 22 U/L (15-37); SGPT 9 U/L (30-65); TOTAL BILIRUBIN < 0.1 mg/dL (<0.1-1.0); TOTAL PROTEIN 5.8 g/dL (6.4-8.2)
[2019-09-21 11:14] VITALS: BP 92/60
[2019-09-21 15:40] VITALS: BP 114/68
[2019-09-21 16:10] LABS: HAV IgM AB (ANTI-HAV IgM) Negative (Negative); HEPATITIS B SURFACE AG Negative (Negative); HEPATITIS C VIRUS AB 0.1 (0.0-0.9)
--- NOTE | 2019-09-21 16:18 | NUR ---
SW reviewed chart and spoke with nursing. Pt is not quite ready for discharge back to [facility]. SW spoke with pt's dtr, Angelica, to provide update. Angelica is agreeable with return to [facility] when medically stable. SW updated [facility] liaison. SW is following to assist as needed with discharge planning.
--- NOTE | 2019-09-21 16:20 | NUR ---
Assumed care approx. 0700 this AM. Pt remains on vent. Pt communicating with lips and paper/pencil. SR on the monitor. Adequate output noted in forrest. Minimal drainage from ostomy bag that's connected to forrest. No residuals from PEG tube x2. Tube feeding increased from 30 to 40 mls/hr. Will recheck residuals before shift ends to see if tolerating. Transvaginal/pelvic US completed; this RN was present in the room during testing. Q2H turns completed when allowed by patient. ST eval requested as patient is wanting to drink fluids orally. Right upper arm PICC intact. Will continue to monitor. Pt stagnant on progressing toward goals as she is still having abdominal pain, especially with palpitation of abdomen.
[2019-09-21 19:30] VITALS: BP 112/67
[2019-09-21 23:44] VITALS: BP 98/59
--- NOTE | 2019-09-22 03:37 | NUR ---
ASSUMED CARE FROM DAY SHIFT PT UP AMBULATING HALLWAY C/O RIB PAIN WITH MOVEMENT,LLUNG SOUNDS CLEAR DIMISHED IN BASES. DISCUSS PLAN OF CARE PT VERBALIZED UNDERSTANDING AND AGREEABLE.SLEDGER SHOWS NSR 86 NO ECTOPY. PT REQUESTING PAIN MEDICATION AND GIVEN QAAS PRESCRIBED . IVF AND ABX GIVEN PRESCIBED. WILL CONINTUE WIOTH CURRENT POC AND WILL REPORT CHANGES OR ABNORMAL FINDINGS.
--- NOTE | 2019-09-22 03:45 | NUR ---
ASSUMED CARE FROM DAY SHIFT PT RESTING ON VENT SAT 98 % TRACH INTACT WITH MIN SECRETIONS. PAIN MEDICATION REQESTING VIA PEG TUBE. PT ALERT ORIENTED X4 TURNED VERY 2 HOURS ABD DRAINAGE BAG WITH APPROX 25ML OF OUTPUT. AMAYA WITH CLEAR YELLOW URINE.PICC LINE INTACT AND PATENT. MAIL CARRIER TECHNICIAN SHOWS NSR, WILL CONITINUE WITH CURRENT PLAN OF CARE. WILL REPORT CHANGES OR ABNORMAL FINDINGS.
[2019-09-22 04:30] VITALS: BP 96/58
[2019-09-22 06:37] LABS: CALCIUM 8.6 mg/dL (8.5-10.1); CREATININE 1.6 mg/dL (0.6-1.0); POTASSIUM 4.5 mmol/L (3.5-5.1)
[2019-09-22 07:22] VITALS: BP 120/54
[2019-09-22 11:52] VITALS: BP 114/57
--- NOTE | 2019-09-22 14:25 | NUR ---
SW reviewed chart and spoke with nursing and attending physician. Pt is progressing towards goals for discharge. Discharge back to [facility] SN[facility] is anticipated for tomorrow. SW updated [facility] liaison. SW is following to assist as needed with discharge planning.
[2019-09-22 15:05] VITALS: BP 112/63
--- NOTE | 2019-09-22 17:10 | NUR ---
ASSUMED CARE OF PT AT 0700. TOLERATING TUBE FEED. RESIDUALS LESS THAN 100CC. STILL NAUSEATED AT TIMES. SCOPOLAMINE PATCH ADDED. INSTRUCTED TO REMOVE ASCITES DRAIN BAG. DRESSED WITH GAUZE AND FOAM TAPE. TURNED PRN, BUT REFUSES AT TIMES. POSSIBLE D/C TOMORROW.
[2019-09-22 19:55] VITALS: BP 120/76
[2019-09-23] VITALS (7 sets, daily range): BP systolic 103–139; BP diastolic 66–84
[2019-09-23 01:07] LABS: ANA INTERPRETATION Negative (Negative)
--- NOTE | 2019-09-23 03:40 | NUR ---
ASSUMED CARE FROM DAY SHIFT PT RESTING FENANTLY FOR PAIN, RESP UNLABORE DON VENT, SAT 99 % PT REFUSED TO BE TURNED, HAVING LOOSE STOOL , TUBE FEEDING @ 55ML , LUNG SOUNDS DIMINISHED OTHERWISE CLEAR , FIELD SALES AGENT SHOWS NSR , WILL CONINTUE WITH CURRENT PLAN OF CARE.
[2019-09-23 05:30] LABS: CALCIUM 8.8 mg/dL (8.5-10.1); CREATININE 1.5 mg/dL (0.6-1.0); POTASSIUM 4.8 mmol/L (3.5-5.1)
--- NOTE | 2019-09-23 05:56 | NUR ---
PT CALLING FOR RESP TREATMENTS FREQ , LUNG SOUND CLEAR IN UPPER LOBES DIMINISHED IN BASES SAT 99% , PAIN MEDICATION GIVEN FREQ REQUESTED. PT HAVING NAUSEA REFUSE ZOFRAN , VOMITED APPROX 100 ML OF TUBE FEEDING LIKE EMESIS. TUBE FEEDING RESIDUAL 15 ML.
--- NOTE | 2019-09-23 12:38 | NUR ---
SW reviewed chart and spoke with nursing and attending physician. Pt is not medically stable for discharge. Pt is not tolerating tube feedings. CT of abdomen ordered today. Pt may need adjustments in TF or product. SW updated [facility] liaison and left voice message for pt's dtr, Angelica, to provide update. Plan is for pt to discharge back to [facility] when medically stable. MANSI is following to assist as needed with discharge planning.
--- NOTE | 2019-09-23 18:55 | NUR ---
PT is on vent with o2 40%, pt's vs are stable, pt is continuing IV ABX, pt's tube feeding is on HOLD due to N/V , RN has called Call DR huynh and WILFRIDO FRANCISCO to report today's abnormal ABD CT scan, new order : continuing hold tube feeding tonight, restart tube feeding at 40ml/hr at 09/14/19 08 AM, RN will report to next shift.
[2019-09-24 03:50] VITALS: BP 123/79
--- NOTE | 2019-09-24 04:39 | NUR ---
Pt. has slept well during the night. Medicated for pain x2 this shift with good relief. Repositioned prn only , other times she refused. Afebrile. Maintaining O2 sat in the upper 90's on vent at 40% FIO2. TF on hold per order. No nausea or vomiting. Bed alarm on for safety and SCD's in place. Making progress towards care plan goals.
[2019-09-24 06:16] LABS: HEMATOCRIT 23.4 % (37.0-47.0); HEMOGLOBIN 7.1 gm/dL (12.0-15.0); MCH 28.2 pg (26.0-34.0); MCHC 30.2 g/dL (28.0-37.0); MCV 93.3 fL (80.0-100.0); RBC 2.5 mil/uL (4.20-5.00); WBC 14.4 thou/uL (4.0-11.0)
[2019-09-24 06:22] LABS: CALCIUM 8.8 mg/dL (8.5-10.1); CREATININE 1.4 mg/dL (0.6-1.0); POTASSIUM 4.3 mmol/L (3.5-5.1)
--- NOTE | 2019-09-24 08:48 | NUR ---
PT REFUSING TUBE FEEDING AND BLOOD PRESSURE CHECKS. WILL PASS ONTO DR. GARCIA WHEN HE ROUNDS DARINEL.
[2019-09-24 11:26] VITALS: BP 125/73
--- NOTE | 2019-09-24 13:39 | NUR ---
SW reviewed chart and spoke with nursing. Pt is not ready for discharge today. SW updated [facility] liaison. [facility] is unable to accept pt back over the weekend. SW updated pt's nurse and attending physician. SW left voice message for pt's dtr, Angelica, to provide update. MANSI is following to assist as needed with discharge planning.
[2019-09-24 14:19] VITALS: BP 101/53; BP 96/54
[2019-09-24 15:53] VITALS: BP 96/54
[2019-09-24 17:33] LABS: HEMATOCRIT 29.4 % (37.0-47.0)
[2019-09-24 17:36] LABS: HEMOGLOBIN 9.4 gm/dL (12.0-15.0)
[2019-09-24 19:22] VITALS: BP 119/62
[2019-09-25 03:36] VITALS: BP 100/59
--- NOTE | 2019-09-25 04:30 | NUR ---
PATIENT IS PROGRESSING SLOWLY IN HIS CARE PLAN. VITAL SIGNS STABLE WITH PATIENT HAVING NO COMPLAINTS OF NAUSEA. PATIENT DID COMPLAIN OF PAIN FREQUENTLY WHICH WAS TREATED APPROPRIATELY THROUGH MEDICATION AND REPOSITIONING. FULLY ORIENTED, PATIENT IS ABLE TO CALL APPROPRIATELY FOR NEEDS AND PARTICIPATE IN CARE. BREATHING STABLE ON VENTILATOR EVIDENCED BY ASSESSMENTS AND READINGS FROM CONTINUOUS SATURATION MONITOR. FREQUENT TURNS OFFERED WITH PATIENT SOMETIMES REFUSING. CONTINUE PLAN OF CARE.
[2019-09-25 06:45] LABS: HEMATOCRIT 24.9 % (37.0-47.0); MCH 29.6 pg (26.0-34.0); MCV 92.6 fL (80.0-100.0); RBC 2.69 mil/uL (4.20-5.00); RDW 16.2 % (10.5-14.5)
[2019-09-25 07:08] LABS: CALCIUM 8.6 mg/dL (8.5-10.1); CREATININE 1.4 mg/dL (0.6-1.0); POTASSIUM 4.1 mmol/L (3.5-5.1)
[2019-09-25 07:17] VITALS: BP 114/60
--- NOTE | 2019-09-25 10:03 | NUR ---
pt frequently refusing turns. educated on importance. will see about ordering pt low air loss mattress
[2019-09-25 11:01] VITALS: BP 98/58
[2019-09-25 15:19] VITALS: BP 128/63
--- NOTE | 2019-09-25 17:48 | NUR ---
spoke with gi dr regarding pt refusal to turn up tube feed. he states he is ok with pt receiving 60% of goal and will speak with her tomorrow and try to get her to increase rate.
[2019-09-25 20:39] VITALS: BP 100/51
[2019-09-26 03:55] VITALS: BP 122/58
--- NOTE | 2019-09-26 06:52 | NUR ---
PATIENT IS SLOWLY PROGRESSING IN HER CARE PLAN. VITAL SIGNS STABLE WITH PATIENT HAVING NO COMPLAINTS OF NAUSEA. PATIENT DID COMPLAIN OF PAIN IN ABDOMEN AND RIBS WHICH WAS TREATED EFFECTIVELY THROUGH MEDICATION. FULLY ORIENTED BUT HIGHLY ANXIOUS AT TIMES, PATIENT IS ABLE TO CALL AND REPORT NEEDS APPROPRIATELY. BREATHING STABLE ON VENTILATOR EVIDENCED BY ASSESSMENT AND READINGS FROM CONTINUOUS SATURATION MONITOR. TURNS AND SKIN CARE OFFERED BUT MOSTLY REFUSED. TUBE FEED PER DOCTOR ORDER. CONTINUE PLAN OF CARE.
[2019-09-26 10:27] VITALS: BP 122/58
[2019-09-26 18:26] VITALS: BP 149/74
--- NOTE | 2019-09-26 19:44 | NUR ---
PT is continuing Vent with o2 40% N/V , and pain management, pt's vs and o2sat are stable, pt can follow commands, but pt still has N/V with tube feeding at 30ml/hr, 150ml H2O FLUSH Q6HR, RN has called GI about n/v, new order received,RN has reported DR about pt refused to change position and oral care, RN has called DR Zimmer to report BUE US results, partial thrombeses at RUE PX to PICC LINE , no new order at this time.
[2019-09-26 20:08] LABS: BE(vivo) 5.2 mmol/L (-2 to +3); HCO3 35.6 mmol/L (22.0-26.0); PO2 124.2 mmHg (80.0-100.0); sO2 97.4 % (92.0-98.0)
[2019-09-26 20:09] LABS: PCO2 93.3 mmHg (35.0-45.0)
[2019-09-26 22:54] LABS: BE(vivo) 5.4 mmol/L (-2 to +3); HCO3 37.7 mmol/L (22.0-26.0); PO2 95.6 mmHg (80.0-100.0)
[2019-09-26 22:56] LABS: PCO2 116.6 mmHg (35.0-45.0); pH 7.127 (7.360-7.450)
--- NOTE | 2019-09-26 23:49 | NUR ---
Phoned pt's daughter to update on transfer to ICU. No answer, message left to call hospital for update.
[2019-09-27] VITALS (60 sets, daily range): BP systolic 68–156; BP diastolic 33–80
[2019-09-27 00:08] LABS: HEMATOCRIT 32.9 % (37.0-47.0); MCH 28.6 pg (26.0-34.0); MCHC 30.4 g/dL (28.0-37.0); MCV 94.1 fL (80.0-100.0); RBC 3.5 mil/uL (4.20-5.00); RDW 16.2 % (10.5-14.5)
[2019-09-27 00:11] LABS: WBC 35.4 thou/uL (4.0-11.0)
[2019-09-27 00:22] LABS: ALBUMIN 2.1 g/dL (3.4-5.0); CALCIUM 8.8 mg/dL (8.5-10.1); CREATININE 1.1 mg/dL (0.6-1.0); MAGNESIUM 1.8 mg/dL (1.8-2.4); POTASSIUM 4.7 mmol/L (3.5-5.1); TOTAL BILIRUBIN 0.5 mg/dL (<0.1-1.0); TOTAL PROTEIN 7.4 g/dL (6.4-8.2)
[2019-09-27 00:26] LABS: BE(vivo) 3.3 mmol/L (-2 to +3); HCO3 31.2 mmol/L (22.0-26.0); PCO2 66.1 mmHg (35.0-45.0); PO2 80.3 mmHg (80.0-100.0); pH 7.292 (7.360-7.450); sO2 94.2 % (92.0-98.0)
--- NOTE | 2019-09-27 01:25 | NUR ---
PT ARRIVED FROM AT 2330 ACCOMPANIED BY ACOUSTICAL INSTALLER, ARLETTE, AND RT STAFF. PT SOMNOLENT AROUSABLE ONLY TO DEEP STIMULATION. WHEN AWAKE PT ABLE TO FOLLOW COMMANDS AND NOD. HIGH PEAK PRESSURES NOTED ON VENT, 50-57. LABS AND ABG DRAWN ON PT. DR MOSS UPDATED ON PT STATUS AT 0030. DR MOSS AWARE OF HIGH PEAK PRESSURES ORDERED VENT CHANGE TO PRESSURE CONTROL 30/7 AND TO TRY TO MAINTAIN A TV OF 400. ADJUSTMENTS MADE BY RT. AM REPEAT LABS AND CHEST X-RAY ORDERED WELL. DR MOSS ALSO UPDATED ON MODERATE AMOUNT OF TUBE FEEDING LIKE SUCTIONED FROM ETT. WILL REPEAT ABG ON CURRENT MODE.
[2019-09-27 03:37] LABS: BE(vivo) 3.5 mmol/L (-2 to +3); PCO2 106.3 mmHg (35.0-45.0); PO2 79.9 mmHg (80.0-100.0); pH 7.135 (7.360-7.450); sO2 90.6 % (92.0-98.0)
[2019-09-27 05:37] LABS: CALCIUM 8.8 mg/dL (8.5-10.1); CREATININE 1.1 mg/dL (0.6-1.0); POTASSIUM 4.7 mmol/L (3.5-5.1)
[2019-09-27 06:08] LABS: BE(vivo) 4.5 mmol/L (-2 to +3); HCO3 37.5 mmol/L (22.0-26.0); PCO2 128.8 mmHg (35.0-45.0); PO2 63.5 mmHg (80.0-100.0); pH 7.082 (7.360-7.450)
[2019-09-27 06:10] LABS: sO2 80.1 % (92.0-98.0)
[2019-09-27 07:15] LABS: INR 1.2; PROTIME 12.4 Seconds (9.3-11.4)
--- NOTE | 2019-09-27 13:15 | NUR ---
FOLLOWING FOR DC PLANNING. CLINICAL INFO REVIEWED. PT BACK IN ICU AFTER INCREASED O2 NEEDS AND TROUBLE MAINTAINING TV ON VENT. POORLY RESPONSIVE NOW, TACHYCARDIC, POOR ABGS. TRIED PRESSURE CONTROL AND AVAPS VENTILATION. DR. GARCIA HERE AND REQUESTED ASSIST CONTACTING DTR/DPOA. HE LEFT VM WANTS TO UPDATE AND DISCUSS GOALS OF CARE GIVEN RECENT DECLINE IN CONDITION. VM LEFT FOR DTR WITH CM AND ICU NURSING CONTACT NUMBERS. DISCUSSSED WITH ARISTIDES GEORGE.
[2019-09-27 17:00] LABS: HCO3 36.2 mmol/L (22.0-26.0); PO2 236.3 mmHg (80.0-100.0); sO2 99.3 % (92.0-98.0)
[2019-09-27 17:01] LABS: PCO2 84.3 mmHg (35.0-45.0); pH 7.251 (7.360-7.450)
--- NOTE | 2019-09-27 19:51 | NUR ---
PT REMAINS ON VENT TODAY. PT HAVING DIFFICULTIES WITH LOW TIDAL VOLUME AND LOW MINUTE VENTILATION. STARTED ON PROPOFOL FOR VENT MANAGMENT AND BICARB GIVEN ORDERED. DR DEL RIO AT BEDSIDE AND VENT ADJUSTMENTS MADE. REPEAT ABG'S DRAWN THIS EVENING. SPOKE WITH DR DEL RIO AND UPDATED HIM OF PT STATUS AND ABG'S. ADDITIONAL BICARB GIVEN. BP DECREASED THIS AFTERNOON. STARTED ON LEVOPHED GTT. TITRATING TO KEEP MAP >65. ATTEMPTED TO CALL AND UPDATE PT'S DAUGHTER. UNABLE TO REACH HER.
[2019-09-28] VITALS (77 sets, daily range): BP systolic 96–138; BP diastolic 45–82
[2019-09-28 05:32] LABS: URINE BILIRUBIN NEGATIVE (Negative); URINE BLOOD 3+ (Negative); URINE CLARITY CLEAR; URINE COLOR YELLOW; URINE GLUCOSE-RANDOM* NEGATIVE (Negative); URINE KETONES 2+ (Negative); URINE NITRITE-REFLEX NEGATIVE (Negative); URINE PROTEIN (DIPSTICK) 1+ (Negative); URINE SPECIFIC GRAVITY 1.025 (1.005-1.035); URINE UROBILINOGEN 0.2 E.U./dl (0.2-1.0)
[2019-09-28 05:33] LABS: HEMATOCRIT 26.8 % (37.0-47.0); HEMOGLOBIN 8.3 gm/dL (12.0-15.0); MCH 28.7 pg (26.0-34.0); MCV 92.5 fL (80.0-100.0); RBC 2.9 mil/uL (4.20-5.00); RDW 15.8 % (10.5-14.5); WBC 35.8 thou/uL (4.0-11.0)
[2019-09-28 05:34] LABS: BE(vivo) 10.9 mmol/L (-2 to +3); HCO3 37.5 mmol/L (22.0-26.0); PCO2 62.8 mmHg (35.0-45.0); PO2 120.6 mmHg (80.0-100.0); pH 7.394 (7.360-7.450); sO2 98.2 % (92.0-98.0)
[2019-09-28 05:35] LABS: URINE LEUKOCYTES-REFLEX 1+ (Negative)
[2019-09-28 05:39] LABS: CALCIUM 8.7 mg/dL (8.5-10.1); CREATININE 1.2 mg/dL (0.6-1.0); POTASSIUM 4.3 mmol/L (3.5-5.1)
[2019-09-28 05:56] LABS: BACTERIA-REFLEX 1-9 Few /HPF (None Seen); CASTS None Seen /LPF (None Seen); CRYSTALS None Seen /LPF (None Seen); SQUAMOUS 0-3 Few /LPF (0-3); URINE RBC >20 Many /HPF (0-2); URINE WBC-REFLEX 6-15 Few /HPF (0-5); YEAST-REFLEX Present (None Seen)
--- NOTE | 2019-09-28 07:42 | NUR ---
Assumed pt care 09/27 @ 1900. Pt on propofol at 20 mcg for vent management, opens eyes and follows simple commands, attempts to mouth words and occasionally swat at this sba underwriter while doing cares. Weaning levophed down for MAP > 65, currently at 6 mcg. BUE edema has steadily increased through noc, especially to LUE. Extremities kept elevated on pillows. Abdomen remains firm with no BM, PEG to LIS w/ minimal bile drainage. Cooper to DD w/ decreased UOP (see I/O). No return call from any family this shift. Pt is not progressing towards goals.
--- NOTE | 2019-09-28 12:31 | NUR ---
WEAN PT OFF PROPOFOL AND LEVOPHED GTT. GAVE BEDSIDE REPORT TO MARK IRVING.
--- NOTE | 2019-09-28 18:24 | NUR ---
ASSUMED PATIENT CARE AT 1300. ALERT. STARTED TF AT 1330 WITH 20ML/HR. NO RESIDUAL NOTED AT THIS TIME. PAIN MED GIVEN NEED, PATIENT REFUSED TURN. VSS. TOLERATED VENT. SOLALY TOWARDS POC GOALS.
[2019-09-29] VITALS (25 sets, daily range): BP systolic 99–136; BP diastolic 58–80
[2019-09-29 06:59] LABS: HEMATOCRIT 24.6 % (37.0-47.0); HEMOGLOBIN 7.7 gm/dL (12.0-15.0); MCHC 31.1 g/dL (28.0-37.0); MCV 93.2 fL (80.0-100.0); PLATELET COUNT 350 thou/uL (150-400); RBC 2.64 mil/uL (4.20-5.00); RDW 16.1 % (10.5-14.5)
[2019-09-29 07:03] LABS: WBC 15.1 thou/uL (4.0-11.0)
[2019-09-29 07:15] LABS: ALBUMIN 2.4 g/dL (3.4-5.0); CALCIUM 8.4 mg/dL (8.5-10.1); CREATININE 1.5 mg/dL (0.6-1.0); POTASSIUM 4.3 mmol/L (3.5-5.1); TOTAL BILIRUBIN 0.4 mg/dL (<0.1-1.0); TOTAL PROTEIN 6.9 g/dL (6.4-8.2)
--- NOTE | 2019-09-29 07:34 | NUR ---
Slept fair during the night. Medicated for pain and anxiety with some relief. Repositioned prn , refuses at times and prefers to stay on her back but would allow pillows to be readjusted. Maintaining O2 sat in the upper 90's on current vent settings.SR-ST per tele. Both arms edematous , elevated with pillows. Kept NPO , refused oral care except this am she allowed RN to use warm wash cloth to wipe dry lips. Refused lip moisturizer. No nausea or vomiting. Tube feeding increased to 30 ml/hr around 2014 then to 40 ml/hr at 5 and tolerated well with no residual. Refused bed bath last night and again this am. Will continue to monitor.
[2019-09-29 08:52] LABS: ABSOLUTE NEUTROPHILS 14.5 thou/uL (1.4-8.2); PLATELET ESTIMATE NORMAL
--- NOTE | 2019-09-29 11:28 | NUR ---
Pt refusing to turn 0800. nurse educated pt that she needs to be turned every 2 hours, pt reponse "why, no I don't" while seeming to mock nurses smile. This nurse attempted to turn pt at 1000, pt refused to turn until respiratory checked trach. Will attempt to turn again at 1200.
--- NOTE | 2019-09-29 17:04 | NUR ---
PT A/OX4 THROUGHOUT DAY, PAIN MEDS GIVEN INDICATED, ALLOWED NURSE TO TURN HER PERIODICALLY-SEE CHARTING. VITAL SIGNS STABLE. WILL MONITOR CLOSELY.
--- NOTE | 2019-09-29 21:35 | NUR ---
PT TRANSFERED TO POD NO 3 IN ROOM 249. REPORT GIVEN TO RN PATIENCE. PT ASSESSED AND MEDS GIVEN. PT TRANSFERED VIA BED WITH RT AND 3 RNS. PT SETTLED IN NEW ROOM. CONTINUE TO MONITOR.
[2019-09-30] VITALS (48 sets, daily range): BP systolic 102–155; BP diastolic 54–86
--- NOTE | 2019-09-30 04:55 | NUR ---
PT REMAINS STABLE ON THE VENT, REFUSES TO TURN AT TIMES, ALSO REFUSED A BATH THIS AM. NO BOWEL MOVEMENT OVERNIGHT.
[2019-09-30 05:53] LABS: ABSOLUTE NEUTROPHILS 8.3 thou/uL (1.4-8.2); BASOPHILS 0.5 % (0.0-2.0); HEMOGLOBIN 7.3 gm/dL (12.0-15.0); LYMPHOCYTES 2.2 % (24.0-44.0); MCH 29.5 pg (26.0-34.0); MCHC 31.7 g/dL (28.0-37.0); PLATELET COUNT 321 thou/uL (150-400); POLYS 94.3 % (36.0-66.0); RBC 2.47 mil/uL (4.20-5.00); RDW 15.5 % (10.5-14.5); WBC 8.8 thou/uL (4.0-11.0)
[2019-09-30 06:04] LABS: CALCIUM 8.3 mg/dL (8.5-10.1); CREATININE 1.6 mg/dL (0.6-1.0); POTASSIUM 4.9 mmol/L (3.5-5.1)
--- NOTE | 2019-09-30 14:14 | NUR ---
FOLLWOING FOR DC PLANNING. PT IS ALERT AND ORIENTED TODAY. ABLE TO WRITE TO COMMUNICATE. REQUESTED DC REFINISHER FAX CLINICAL UPDATGE TO [facility] ADMISSIONS. PT IS AGREEABLE TO RETURN TO [facility] VENT UNIT AT [facility] WHEN MEDICALLY READY, POSSIBLY NEXT 1-2 DAYS.
--- NOTE | 2019-09-30 17:04 | NUR ---
PT WAS TRANSFERRED TO ROOM 361 VIA BED. ALL BELONGINGS SENT WITH PT. REPORT WAS GIVEN TO ARISTIDES JOSEPH.
--- NOTE | 2019-09-30 18:34 | NUR ---
Patient transferred from ICU to [address] [place] [address] and arrived approx. 1700. Patient attached to engine monitor-SR noted. Tele strip in chart. Initial pt assessment completed (see charting). Pt tube feed infusing. Right upper arm PICC intact. Pt complains of SOB since arrival to unit & says it started when leaving ICU. RT aware and said vent pressures are the same as they were in ICU. Pt given PRN med for anxiety. Will continue to monitor.
--- NOTE | 2019-10-01 04:19 | NUR ---
ASSUMED PATIENT CARE AT 1845. VITAL SIGNS STABLE WITH PATIENT HAVING NO COMPLAINTS OF NAUSEA. PATIENT DID COMPLAIN OF ABDOMINAL PAIN FREQUENTLY AND WAS TREATED APPROPRIATELY THROUGH MEDICATION. FULLY ALERT AND ORIENTED, PATIENT IS HIGHLY ANXIOUS AND IS ABLE TO CALL FOR NEEDS. BREATHING STABLE ON VENTILATOR EVIDENCED BY ASSESSMENT AND CONTINUOUS SATURATION MONITOR. PATIENT REFUSES ORAL CARE. FREQUENT REQUESTS FOR BREATHING TREATMENTS. TUBE FEED TOLERATED WELL AT GOAL RATE WITH MINIMAL RESIDUAL ASSESSED. PATIENT HAS REFUSED ALL TURNS OVER SHIFT, ONLY ALLOWING NURSING STAFF THE OPPORTUNITY TO CLEAN UP INCONTINENT BOWEL MOVEMENT. PATIENT IS POORLY PROGRESSING IN HER CARE PLAN.
[2019-10-01 05:51] VITALS: BP 146/81
[2019-10-01 07:27] VITALS: BP 153/140
[2019-10-01 11:16] VITALS: BP 139/91
--- NOTE | 2019-10-01 13:59 | NUR ---
SW reviewed chart and spoke with nursing and attending physician. Pt was transferred to from ICU. No weekend discharge planned. SW updated [facility] liaison. Plan is for pt to return to [facility] when medically stable. SW is following to assist as needed with discharge planning.
[2019-10-01 15:24] VITALS: BP 146/71
--- NOTE | 2019-10-01 18:14 | NUR ---
ASSUMED PATIENT CARE AT 0700. ON VENT. GENERLIZED EDEMA. PAIN MEDS GIVEN. TOLERATED TF. NO RESIDUAL NOTED, REFUSED TURN AND ORAL CARE. SLOWLY TOWARDS POC GOALS,
[2019-10-01 19:34] VITALS: BP 157/88
--- NOTE | 2019-10-02 02:15 | NUR ---
PT RESTING IN BED, WATCHING TV. VENTILATOR INTACT. TFEEDING INTACT, IVF INTACT, AMAYA TO DD. PT REQUESTING PRN XANAX, PAIN AND NAUSEA MEDS AND PROVIDED. PT DECLINING ORAL CARE AND REPOSITIONING. LUNGS COARSE WITH WHEEZES. BLE EDEMA +3 BUE +2.
[2019-10-02 04:45] VITALS: BP 150/89
[2019-10-02 05:36] LABS: HEMATOCRIT 26.6 % (37.0-47.0); HEMOGLOBIN 8.2 gm/dL (12.0-15.0); MCHC 30.6 g/dL (28.0-37.0); MCV 94.9 fL (80.0-100.0); RBC 2.81 mil/uL (4.20-5.00); RDW 15.9 % (10.5-14.5); WBC 18.1 thou/uL (4.0-11.0)
[2019-10-02 05:53] LABS: CALCIUM 8.9 mg/dL (8.5-10.1); CREATININE 1.4 mg/dL (0.6-1.0); POTASSIUM 5.4 mmol/L (3.5-5.1)
[2019-10-02 07:39] VITALS: BP 142/84
[2019-10-02 11:24] VITALS: BP 131/76
[2019-10-02 15:34] VITALS: BP 163/86
--- NOTE | 2019-10-02 17:55 | NUR ---
ASSUMED CARE OF PT AT 0700. PT MORE LETHARGIC. RESP RATE 30's. SUCTIONED WHAT APPEARED TO BE TUBE FEEDING. RESIDUALS SHOWING 250cc. PULM NOTIFIED OF RESP CHANGES - ALBUMIN AND LASIX GIVEN. INSTRUCTED TO PAUSE TUBE AND RESUME AT LOWER RATE LATER ON TODAY. EDEMADOUS THROUGHOUT - KEPT ELEVATED WITH PILLOWS. LUNG SOUNDS DIMINISHED. REFUSING ORAL CARE OR BEING TURNED. TO RESUME TUBE FEED AT HALF RATE AT 1800. POOR PROGRESS TOWARD POC GOALS.
[2019-10-03] VITALS (17 sets, daily range): BP systolic 96–174; BP diastolic 52–102
--- NOTE | 2019-10-03 13:31 | NUR ---
ASSUMED PATIENT CARE AT 0700. ALERT. LEONELA. TF RUNNING AT 15ML/HR. NO RESIDUAL NOTED. NOTED PATIENT DESAT TO 82% ON 40% FIO2 GETTING MORE LETHARGIC.SEWER PIPE LAYER INITIATE AT 1304. STAT LAB GOT. WILL NOTIFIY PHSICIAN WHEN LAB RESULT BACK.
[2019-10-03 13:34] LABS: HEMATOCRIT 28.1 % (37.0-47.0); HEMOGLOBIN 8.4 gm/dL (12.0-15.0); MCH 28.7 pg (26.0-34.0); MCHC 29.7 g/dL (28.0-37.0); MCV 96.3 fL (80.0-100.0); RBC 2.91 mil/uL (4.20-5.00); RDW 16.3 % (10.5-14.5); WBC 29.8 thou/uL (4.0-11.0)
[2019-10-03 13:40] LABS: ANION GAP < 0 mmol/L (7-16); BUN 65 mg/dL (7-18); CALCIUM 9.3 mg/dL (8.5-10.1); CHLORIDE 98 mmol/L (98-107); CO2 43 mmol/L (21-32); CREATININE 1.4 mg/dL (0.6-1.0); GLUCOSE 198 mg/dL (74-106); SODIUM 137 mmol/L (136-145)
[2019-10-03 13:45] LABS: POTASSIUM 6.4 mmol/L (3.5-5.1)
[2019-10-03 14:12] LABS: ABSOLUTE NEUTROPHILS 27.7 thou/uL (1.4-8.2); ANISOCYTOSIS 1+; METAMYELOCYTES 2 %
[2019-10-03 14:13] LABS: POLYCHROMASIA 1+
[2019-10-03 14:38] LABS: BE(vivo) 5.4 mmol/L (-2 to +3); PCO2 118.5 mmHg (35.0-45.0); PO2 105.5 mmHg (80.0-100.0); pH 7.112 (7.360-7.450); sO2 95.2 % (92.0-98.0)
[2019-10-03 14:56] LABS: PLATELET COUNT 562 thou/uL (150-400)
--- NOTE | 2019-10-03 15:12 | NUR ---
QUALITY ASSURANCE AUDITOR activated-see flowsheet
--- NOTE | 2019-10-03 17:54 | NUR ---
PATIENT ADMITTED TO ROOM AT THIS TIME. SHE IS LETHERGIC. UNRESPONSIVE TO TOUCH OR SOUND. CONT ON VENT. PEG TUBE STARTED. NO RESIDUAL NOTED. WILL CONT WITH PLAN OF CARE.
[2019-10-04] VITALS (20 sets, daily range): BP systolic 99–157; BP diastolic 51–78
[2019-10-04 00:04] LABS: HEMATOCRIT 23.7 % (37.0-47.0); HEMOGLOBIN 7.1 gm/dL (12.0-15.0); MCH 28.9 pg (26.0-34.0); MCHC 29.9 g/dL (28.0-37.0); MCV 96.4 fL (80.0-100.0); RBC 2.46 mil/uL (4.20-5.00); RDW 15.9 % (10.5-14.5)
[2019-10-04 00:05] LABS: PLATELET COUNT 268 thou/uL (150-400)
[2019-10-04 00:34] LABS: ABSOLUTE NEUTROPHILS 16.3 thou/uL (1.4-8.2); METAMYELOCYTES 2 %
[2019-10-04 04:47] LABS: HEMATOCRIT 23.9 % (37.0-47.0); HEMOGLOBIN 7.5 gm/dL (12.0-15.0); MCH 30.4 pg (26.0-34.0); MCHC 31.5 g/dL (28.0-37.0); MCV 96.5 fL (80.0-100.0); PLATELET COUNT 282 thou/uL (150-400); RBC 2.47 mil/uL (4.20-5.00); RDW 15.5 % (10.5-14.5); WBC 19.1 thou/uL (4.0-11.0)
[2019-10-04 05:07] LABS: ALBUMIN 2.8 g/dL (3.4-5.0); CREATININE 1.3 mg/dL (0.6-1.0); POTASSIUM 5.8 mmol/L (3.5-5.1); TOTAL BILIRUBIN 0.4 mg/dL (<0.1-1.0); TOTAL PROTEIN 6.2 g/dL (6.4-8.2)
[2019-10-04 05:21] LABS: BE(vivo) 14.2 mmol/L (-2 to +3); HCO3 42.6 mmol/L (22.0-26.0); PCO2 85.5 mmHg (35.0-45.0); PO2 114.6 mmHg (80.0-100.0); pH 7.315 (7.360-7.450); sO2 97.6 % (92.0-98.0)
--- NOTE | 2019-10-04 08:20 | NUR ---
PT WAS UNRESPONSIVE AT THE BEGINNING OF THE MAPPER. PT WAS AT 100% FIO2. 150MEQ BICARB GIVEN. PT MORE AWAKE, FOLLOWING COMMANDS AND ASKING TO GET A DRINK OF WATER. PT'S CRITICAL PH 7.[address] DEL RIO THIS MORNING. DR. DEL RIO IS OKAY WITH THE RESULTS AND KEEP PT IN THE SAME VENT SETTINGS. PT IS STABLE FOR NOW. PALLIATIVE CARE CONSULT TODAY. CHART CHECK. REPORT GIVEN TO ARISTIDES FLORES.
[2019-10-04 08:38] LABS: ABSOLUTE NEUTROPHILS 18.3 thou/uL (1.4-8.2); HYPOCHROMASIA 2+; METAMYELOCYTES 1 %; PLATELET ESTIMATE NORMAL
--- NOTE | 2019-10-04 09:48 | NUR ---
PT REFUSED TURNS EARLIER, THEN ALLOWED TO TURN TO RIGHT SIDE. PT REFUSES CHLORHEXIDINE BUT DID ASK FOR WET COLD WASH RAG AND WIPED TEETH AND LIPS OFF.
--- NOTE | 2019-10-04 10:45 | NUR ---
PT FREQUENTLY POPPING TRACH OFF ON PURPOSE THIS MORNING.
--- NOTE | 2019-10-04 14:23 | NUR ---
pt very withdrawn today. continues to pull off vent from trach. when asked why, she doesn't respond. pt normally writes or mouths words, did this this morning. this afternoon she just tries to sit up in bed and hits hands on thighs. pt won't make eye contact with staff this afternoon.
--- NOTE | 2019-10-04 15:00 | NUR ---
PT NOW PULLING OFF TRACH WHEN RN STANDING AT BEDSIDE. CALL PLACED TO DR DEL RIO.
--- NOTE | 2019-10-04 17:36 | NUR ---
PT TRACH WITH WORSENING LEAK, CALLED RT, THEY INFLATED IT SLIGHTLY. SPO2 95%
--- NOTE | 2019-10-04 18:37 | NUR ---
PT COCCYX RED BUT BLANCHABLE, BARRIER CREAM APPLIED. PT WAS TURNED SHE WOULD ALLOW TODAY
[2019-10-05] VITALS (23 sets, daily range): BP systolic 97–171; BP diastolic 51–83
[2019-10-05 04:57] LABS: HEMOGLOBIN 7.3 gm/dL (12.0-15.0); MCH 29.3 pg (26.0-34.0); MCHC 30.6 g/dL (28.0-37.0); MCV 95.9 fL (80.0-100.0); RBC 2.5 mil/uL (4.20-5.00); RDW 15.9 % (10.5-14.5); WBC 23.9 thou/uL (4.0-11.0)
[2019-10-05 05:11] LABS: CALCIUM 8.9 mg/dL (8.5-10.1); CREATININE 1.3 mg/dL (0.6-1.0); POTASSIUM 5.7 mmol/L (3.5-5.1)
--- NOTE | 2019-10-05 06:12 | NUR ---
PT ALERT AND OBEYS COMMANDS. PT IN CHRONIC PAIN. OFTEN REQUESTING PAIN MEDS. PT DISCONNECTED HER VENT MULTIPLE TIMES. PT AWARE OF THE CONSEQUENCE OF THIS KIND OF ACTIVITY BUT STILL CONTINUES TO DO IT TO GRAB ATTENTION TO GET PAIN MEDS. PT NOT PROGRESSING TOWARDS GOALS. CONTINUE TO MONITOR.
--- NOTE | 2019-10-05 17:30 | NUR ---
PT CARE ASSUMED APPROX 0700. ASSESSMENTS CHARTED. VSS EXCEPT WHEN PT REPORTING PAIN. WHEN PT IS AWAKE SHE IS FREQUENTLY PULLING VENT. PT REPORTS THAT SHE IS AWARE OF WHAT SHE IS DOING. SHE REPORTS UNDERSTANDING HOW TO USE THE CALL LIGHT. PT DOES NOT ANSWER WHEN SHE IS ASKED WHY SHE KEEPS DISCONNECTING HERSELF FROM VENT. PT ALSEEP AT THIS TIME. VSS. APPEARS COMFORTABLE. EASILT AROUSABLE. TURNING Q2 HRS AND PRN. AMAYA PATET. BUE ELEVATED. PT TOLERATING TUBE FEEDING WITHOUT RESIDUALS. PT TOLERATING POC. NO DISTRESS NOTED.
[2019-10-06] VITALS (23 sets, daily range): BP systolic 91–161; BP diastolic 49–80
--- NOTE | 2019-10-06 06:20 | NUR ---
pt having high residual tube feed.Tube feed was held at night and restarted back at 20ml/hr this am. Pt constanly pulled her vent tube and mouthed for pain meds. chart check. pt slowly progressing towards goals.
--- NOTE | 2019-10-06 14:55 | NUR ---
pt cont in icu, cont with dcp, will dc back to [facility]. will cont following as needed for dc needs.
--- NOTE | 2019-10-06 19:00 | NUR ---
PATIENT SLEEPING MOST OF THE DAY, PULLING VENT OFF OF TRACH DEMANDING PAIN MEDICATION AT NOONTIME, AROUSES. TUBE FEEDING ON HOLD FOR HIGH RESIDUALS. REGLAN CHANGED FROM PER TUBE TO PO. STATUS OTHERWISE UNREMARKABLE AND TOLERATING VENT.
[2019-10-07] VITALS (22 sets, daily range): BP systolic 92–163; BP diastolic 54–105
[2019-10-07 06:11] LABS: HEMATOCRIT 24.1 % (37.0-47.0); HEMOGLOBIN 7.2 gm/dL (12.0-15.0); MCH 29.3 pg (26.0-34.0); MCHC 29.9 g/dL (28.0-37.0); MCV 97.9 fL (80.0-100.0); RBC 2.46 mil/uL (4.20-5.00); RDW 16.5 % (10.5-14.5); WBC 24.5 thou/uL (4.0-11.0)
[2019-10-07 06:22] LABS: CALCIUM 9.5 mg/dL (8.5-10.1); CREATININE 1.2 mg/dL (0.6-1.0)
[2019-10-07 06:30] LABS: POTASSIUM 6.2 mmol/L (3.5-5.1)
--- NOTE | 2019-10-07 10:13 | NUR ---
Nutrition: REC consider enteral formula change to Nepro goal 35 ML/hr due to hyperkalemia issues. This formula more concentrated and less volume needed to reach goal considering pt's issues with high residuals. Consider Check KUB as Tube feeds have required several holds and low rates due to residuals. On scheduled reglan.
--- NOTE | 2019-10-07 12:16 | NUR ---
PT ASKED ORIENTATION QUESTIONS AND YES/NO QUESTIONS. BEGINNING PORTION OF SHIFT, PT WOULD ONLY STARE AT STAFF AND RT. WOULD NOT NOD OR SHAKE HEAD EVEN WHEN PROMPTED TO DO SO PRIOR TO QUESTIONS BEING ASKED. WOULD NOT ATTEMPT TO USE PEN TO COMMUNICATE. WOULD NOT ATTEMPT EYE BLINKING, HAND SQUEEZING, ETC TO COMMUNICATE. NOW PT ATTEMPTS TO USE PAPER AND PEN TO COMMUNICATE. WHEN ASKED ORIENTATION QUESTIONS, PT WRITES LETTERS THAT DO NOT SPELL OUT WORDS, UNABLE TO ANSWERS ORIENTATION QUESTIONS. PT IS ABLE TO NOD HEAD WHEN ASKED IF SHE WOULD STILL WANT COMPRESSIONS IF HER HEART WERE TO STOP, NODS HEAD WHEN ASKED IF SHE WANTS TO CONTINUE ON VENTILATOR, NODS HEAD YES WHEN ASKED IF SHE WOULD LIKE EVERYTHING DONE FOR HER. PT HOWEVER, KEEPS REMOVING VENT FROM TRACH, REDIRECTED OFTEN. PT NOT COMMUNICATING WITH STAFF, KEEPS REMOVING VENT TUBING AFTER EDUCATION GIVEN ON NEED FOR VENT SUPPORT
--- NOTE | 2019-10-07 12:35 | NUR ---
per MD will dc back to [facility] when stable for dc. discussed with cm team. cm called tried to speak with janine but she not in office at that time. asked intact if would look at pt for [facility]. referral faxed to [phone] [facility]. will cont following as needed for dc needs.
--- NOTE | 2019-10-07 16:40 | NUR ---
per [facility] they can accept pt to ltac unit when dc from hospital. per will see how lab work is and then determine if she is stable for dc to [facility].
[2019-10-07 19:16] LABS: CALCIUM 8.8 mg/dL (8.5-10.1); CREATININE 1.3 mg/dL (0.6-1.0); POTASSIUM 4.9 mmol/L (3.5-5.1)
[2019-10-08] VITALS (41 sets, daily range): BP systolic 103–169; BP diastolic 61–87
[2019-10-08 05:33] LABS: WBC 19.3 thou/uL (4.0-11.0)
[2019-10-08 05:35] LABS: HEMATOCRIT 20.4 % (37.0-47.0); MCH 29.4 pg (26.0-34.0); MCHC 30.5 g/dL (28.0-37.0); MCV 96.5 fL (80.0-100.0); RBC 2.12 mil/uL (4.20-5.00); RDW 16.5 % (10.5-14.5)
[2019-10-08 05:37] LABS: HEMOGLOBIN 6.2 gm/dL (12.0-15.0)
[2019-10-08 06:01] LABS: BUN 72 mg/dL (7-18); CHLORIDE 102 mmol/L (98-107); CREATININE 1.3 mg/dL (0.6-1.0); GLUCOSE 50 mg/dL (74-106); POTASSIUM 4.7 mmol/L (3.5-5.1); SODIUM 148 mmol/L (136-145)
[2019-10-08 06:07] LABS: CO2 > 45 mmol/L (21-32)
[2019-10-08 06:22] LABS: MCH 29.6 pg (26.0-34.0); MCHC 30.3 g/dL (28.0-37.0); MCV 97.8 fL (80.0-100.0)
[2019-10-08 06:24] LABS: HEMATOCRIT 20.2 % (37.0-47.0); RBC 2.07 mil/uL (4.20-5.00); RDW 16.8 % (10.5-14.5); WBC 19.2 thou/uL (4.0-11.0)
[2019-10-08 06:42] LABS: HEMOGLOBIN 6.1 gm/dL (12.0-15.0)
--- NOTE | 2019-10-08 12:18 | NUR ---
here for visit. no anctipated dc over the weekend. there through the weekend. update to [facility] next week.
[2019-10-08 17:03] LABS: BE(vivo) 12.7 mmol/L (-2 to +3); HCO3 45.8 mmol/L (22.0-26.0); PO2 250.6 mmHg (80.0-100.0); sO2 99.2 % (92.0-98.0)
[2019-10-08 17:03] LABS: HEMATOCRIT 27.6 % (37.0-47.0); MCH 28.7 pg (26.0-34.0); MCHC 30.2 g/dL (28.0-37.0); MCV 95.2 fL (80.0-100.0); RBC 2.9 mil/uL (4.20-5.00); WBC 28.7 thou/uL (4.0-11.0)
[2019-10-08 17:04] LABS: PCO2 151.5 mmHg (35.0-45.0); pH 7.098 (7.360-7.450)
[2019-10-08 17:06] LABS: HEMOGLOBIN 8.3 gm/dL (12.0-15.0)
[2019-10-08 17:12] LABS: BUN 73 mg/dL (7-18); CALCIUM 8.9 mg/dL (8.5-10.1); CHLORIDE 102 mmol/L (98-107); CREATININE 1.3 mg/dL (0.6-1.0); GLUCOSE 151 mg/dL (74-106); POTASSIUM 4.9 mmol/L (3.5-5.1); SODIUM 148 mmol/L (136-145)
[2019-10-08 17:17] LABS: CO2 > 45 mmol/L (21-32)
--- NOTE | 2019-10-08 18:17 | NUR ---
EPISODE OF DESATURATION AND DIAPHORESIS, UNABLE TO VENTILATE, CHANGED OUT VENT AND BAGGED FOR ABOUT [address] MOSS AT BEDSIDE, ABG, CXR, CBC, BMP COMPLETED. RECIEVED 1 UNIT OF PRBC FOR HGB OF 6.1, NOW GREAATER THAN 8
[2019-10-09] VITALS (19 sets, daily range): BP systolic 112–163; BP diastolic 70–86
[2019-10-09 05:20] LABS: HEMATOCRIT 24.9 % (37.0-47.0); MCH 29.8 pg (26.0-34.0); MCV 93.2 fL (80.0-100.0); RBC 2.67 mil/uL (4.20-5.00); RDW 18.1 % (10.5-14.5); WBC 15.5 thou/uL (4.0-11.0)
--- NOTE | 2019-10-09 05:40 | NUR ---
Received report and assumed patient care. Patient remained lethargic until 3 am. Patient then woke up and was fussing about being bathed. Patient disconnected the vent twice and restraints were reapplied. Patient educated on not disconnecting the ventilator but continued to pull at the trach. Patient remains the same and is not progressing at this time.
[2019-10-09 05:57] LABS: CALCIUM 8.9 mg/dL (8.5-10.1); CREATININE 1.1 mg/dL (0.6-1.0); POTASSIUM 4.4 mmol/L (3.5-5.1)
--- NOTE | 2019-10-09 15:10 | NUR ---
REMAINS WITH TRACH ON VENT. FOLLOWS COMMANDS. BREATHING TREATMENTS PER RESPIRTORY. LUNGS ARE CLEAR TO DIMINISHED. ABDOMEN IS ROUND AND SOFT. FECAL MANAGEMENT SYSTEM IN PLACE. AND AMAYA CATHETER. NO ISSUES OR CONERNS DENIES ANY PAIN ISSUES. TOLERATING TUBE FEEDINGS. REMAINS IN RESTRAINTS. WILL CONTINUE TO MONITOR AND PROGRESS TOWARDS GOALS AT THIS TIME WITH TREATMENT
[2019-10-10] VITALS (24 sets, daily range): BP systolic 142–162; BP diastolic 66–81
[2019-10-10 06:35] LABS: CALCIUM 8.9 mg/dL (8.5-10.1); CREATININE 1.1 mg/dL (0.6-1.0)
--- NOTE | 2019-10-10 15:35 | NUR ---
PT IS TRACH ON THE VENT. FOLLOWS COMMANDS AND ANSWERES YES OR NO TO SIMPLE QUESTIONS. COMPLAINS OF GENERALIZED PAIN AND PAIN MEDS GIVEN SEE MAR FOR TIME OF ADMINISTRATION. REMAINS IN RESTRAINTS BILATERAL. LUNGS ARE CLEAR TO DIMINISHED. FECAL MANANGEMENT IN PLACCE AND AMAYA IN PLACE. WILL CONTINUE TO MONITOR AND PROGRESS TOWARDS GOALS.
[2019-10-11] VITALS (17 sets, daily range): BP systolic 119–180; BP diastolic 58–94
[2019-10-11 06:33] LABS: BUN 63 mg/dL (7-18); CALCIUM 8.5 mg/dL (8.5-10.1); CHLORIDE 102 mmol/L (98-107); CREATININE 1.1 mg/dL (0.6-1.0); GLUCOSE 160 mg/dL (74-106); POTASSIUM 3.9 mmol/L (3.5-5.1); SODIUM 148 mmol/L (136-145)
[2019-10-11 06:40] LABS: CO2 > 45 mmol/L (21-32)
--- NOTE | 2019-10-11 07:55 | NUR ---
AOX4. ON VENT, TRACH. TOLERATING VENT SETTINGS. AFEBRILE. MEDICATED FOR PAIN RELIEF. TUBE FEEDINGS PLACED ON HOLD THIS AM, PT'S ABD IS DISTENTED AND PT REDRAW FROM PALPATION D/T PAIN. URINE OUTPUT GREATER THAN 30CC/HR. WILL CONTINUE TO MONITOR
--- NOTE | 2019-10-11 09:54 | NUR ---
FAXED CLINICAL UPDATE TO [facility] RECEIVED CONFIRMATION AND LEFT MSG WITH ESCOBAR IN ADM THAT POSS DC TODAY.
--- NOTE | 2019-10-11 09:59 | NUR ---
sally requested update clinical. per sally they cant take with expensive medication avycaz. had already sent message to dr huynh to see if he thought she would be ready to dc to [facility] prior to message from sally ltac liaison. reynaldo has asked sally to reach out to md to see if medication can be changed to something else. will cont following as needed for dc needs.
[2019-10-11] MEDS ORDERED: MINOCIN50 MG PO (13:32)
[2019-10-11] MEDS ORDERED: AVYCAZ 2 GM-0.2.5 GM IV (13:33)
[2019-10-11] MEDS ORDERED: FLUCONAZOLE 10100 MG PER TUBE (13:33)
[2019-10-11] MEDS ORDERED: ONDANSETRON HCL4 M1 IV PUSH (13:34)
[2019-10-11] MEDS ORDERED: Protonix 40 MG VIAL IV PUSH (13:34)
[2019-10-11] MEDS ORDERED: MELATONIN5 M1 PO (13:35)
[2019-10-11] MEDS ORDERED: METOCLOPRA10 MG/101 PER TUBE (13:35)
[2019-10-11] MEDS ORDERED: SOLU-MEDRO40 MG/1 M1 IV PUSH (13:35)
[2019-10-11] MEDS ORDERED: NORCO 10-325 T1 EACH PO (13:36)
--- NOTE | 2019-10-11 16:45 | NUR ---
PT DISCHARGING TODAY BACK TO [facility] FAXED DC ORDERS/SUMMARY TO FACILITY SPOKE WITH ESCOBAR IN ADM SHE RECEIVED DC ORDERS. TRANSPORT ARRANGED BY AMBULANCE FOR 1530 TODAY. FAMILY NOTIFIED BY MANSI (VIVI) AND UNIT NOTIFIED AND CHART COPY PER US.
--- NOTE | 2019-10-11 16:46 | NUR ---
Pt discharged to [facility] with EMS transport. Report was called to Maximo Morales RN prior to transfer. Pt sent with double lumen PICC line right upper arm, Cooper catheter and fecal management tube. Gastrostomy clamped. Tracheostomy intact. Bagged by imaging specialist for transport.
--- NOTE | 2019-10-13 12:41 | EKG ---
[facility] [place] [address] ELECTROCARDIOGRAM REPORT Name: JAJA CARRILLO Room #: 246-P [facility] IN M.R.#: [id number] Admission: 09/13/19 Attend Phys: Corky Gill MD Discharge: 10/11/19 Date of : 64 Report #: [id number] THIS REPORT FOR: cc: Selvin Styles MD, Christopher B. MD Lundgren,Ozzie Bennett MD [facility] ~ THIS REPORT FOR: //name// [facility] Test Date: 2019-10-03 Test Time: 13:15:45 Pat Name: JAJA CARRILLO Department: Room: 246 Gender: F Toll Line Inspector: GIL : 1960 Requested By: Corky Gill Order Number: [id number] MD: Ozzie Petit Measurements Intervals [place] Rate: 114 P: 81 AR: 108 QRS: 46 QRSD: 84 T: 79 QT: 290 QTc: 400 Interpretive Statements Sinus tachycardia Low voltage, extremity and precordial leads Baseline wander in lead(s) V2 Compared to ECG 09/13/2019 13:26:18 ST and T wave abnormality is less pronounced Electronically Signed On 10-04-2019 17:17:36 DRY PAN CHARGER by Ozzie Petit [email or web address] <ELECTRONICALLY SIGNED> By: Ozzie Petit MD, FAC 10/04/19 1717 1315 1315 Ozzie Petit MD, [facility] /EPI
--- NOTE | 2019-10-13 18:32 | EEG ---
[facility] [place] [address] ELECTROENCEPHALOGRAM Name: JAJA CARRILLO Room #: 246-P [facility] IN M.R.#: [id number] Admission: 09/13/19 Attend Phys: Corky Gill MD Discharge: 10/11/19 Date of : 64 Report #: [id number] THIS REPORT FOR: //name// CC: Selvin Gill DATE OF SERVICE: 09/15/2019 This patient is being evaluated post-cardiac arrest. EEG was done by placing the electrode by standard 10-20 system of electrode placement. Both referential and sequential montages were used for recording. Background activity does go up to about 5-6 Hz and 15-20 microvolts. Photic stimulation is unremarkable. EEG is slower in between probably indicating drowsiness. No active epileptiform activity was noticed. IMPRESSION: This is an abnormal EEG because it is slow and low amplitude. That finding will be consistent with a diagnosis of encephalopathy, although the finding is nonspecific and can occur with dementia, effect of psychotropic medication, etc. No active epileptiform activity was noticed. If prognostication from hypoxic encephalopathy is desired, then the patient will need serial EEGs over a period of time. Thank you very much for this referral. <ELECTRONICALLY SIGNED> By: Tristan Diaz MD 10/13/19 1832 0815 08 Tristan Diaz MD /nt
== END 2019-10-11 16:47 | DRG 870 ==
LOC: ER 13:14 → EROBS 13:39 → ICU 13:39 → 3W 09-18 11:18 → ICU 09-26 23:55 → 3W 09-30 16:56 → ICU 10-03 15:02
PROVIDERS: Emergency Medicine; Family Medicine; Internal Medicine Gastroenterology; Internal Medicine Infectious Disease; Internal Medicine Pulmonary Disease; Nurse Practitioner; Pediatrics; Specialist; ADMIT Internal Medicine Geriatric Medicine
DX: A41.9 Sepsis, unspecified organism (principal); I46.9 Cardiac arrest, cause unspecified; J96.21 Acute and chronic respiratory failure with hypoxia; J96.22 Acute and chronic respiratory failure with hypercapnia; K65.1 Peritoneal abscess; R65.21 Severe sepsis with septic shock; E43 Unspecified severe protein-calorie malnutrition; J18.9 Pneumonia, unspecified organism; J44.0 Chronic obstructive pulmonary disease with (acute) lower respiratory infection; R18.8 Other ascites; N17.9 Acute kidney failure, unspecified; E87.4 Mixed disorder of acid-base balance; N39.0 Urinary tract infection, site not specified; J95.851 Ventilator associated pneumonia; K56.7 Ileus, unspecified; I10 Essential (primary) hypertension; J44.9 Chronic obstructive pulmonary disease, unspecified; K21.9 Gastro-esophageal reflux disease without esophagitis; E11.9 Type 2 diabetes mellitus without complications; F41.9 Anxiety disorder, unspecified; F31.9 Bipolar disorder, unspecified; I48.91 Unspecified atrial fibrillation; D63.8 Anemia in other chronic diseases classified elsewhere; N73.1 Chronic parametritis and pelvic cellulitis; R13.10 Dysphagia, unspecified; E87.6 Hypokalemia; E66.9 Obesity, unspecified; B96.5 Pseudomonas (aeruginosa) (mallei) (pseudomallei) as the cause of diseases classified elsewhere; Z86.718 Personal history of other venous thrombosis and embolism; Z87.891 Personal history of nicotine dependence; Z93.1 Gastrostomy status; Z68.28 Body mass index [BMI] 28.0-28.9, adult; Z87.01 Personal history of pneumonia (recurrent); Z79.01 Long term (current) use of anticoagulants; Z93.0 Tracheostomy status; Z28.21 Immunization not carried out because of patient refusal; Z79.899 Other long term (current) drug therapy; Z88.1 Allergy status to other antibiotic agents; Z88.5 Allergy status to narcotic agent; Z88.8 Allergy status to other drugs, medicaments and biological substances; Z86.711 Personal history of pulmonary embolism
CPT/HCPCS: 10078; 10203; 10879; 85076

== ENCOUNTER 2019-10-12 18:20 | Inpatient (IN) | payer OTHER ==
[~2019-10-12] VITALS: Ht 167.6 cm; Wt 71.9 kg
[2019-10-12] VITALS (13 sets, daily range): BP systolic 93–146; BP diastolic 55–93
[~2019-10-12 18:20] MED LIST changes: +AVYCAZ 2 GM-0.2.5 GM IV; +FLUCONAZOLE 10100 MG PER TUBE; +MELATONIN5 M1 PO; +METOCLOPRA10 MG/101 PER TUBE; +MINOCIN50 MG PO; +NORCO 10-325 T1 EACH PO; +ONDANSETRON HCL4 M1 IV PUSH; +Protonix 40 MG VIAL IV PUSH; +SOLU-MEDRO40 MG/1 M1 IV PUSH
[2019-10-12 19:01] LABS: BE(vivo) 10.6 mmol/L (-2 to +3); PCO2 75.4 mmHg (35.0-45.0); PO2 83.5 mmHg (80.0-100.0); pH 7.331 (7.360-7.450); sO2 95.1 % (92.0-98.0)
[2019-10-12 19:21] LABS: HEMOGLOBIN 9.9 gm/dL (12.0-15.0); MCV 93.3 fL (80.0-100.0); PLATELET COUNT 215 thou/uL (150-400); RBC 3.43 mil/uL (4.20-5.00); RDW 16.7 % (10.5-14.5); WBC 20.5 thou/uL (4.0-11.0)
[2019-10-12 19:26] LABS: BUN 63 mg/dL (7-18); CALCIUM 8.9 mg/dL (8.5-10.1); CHLORIDE 103 mmol/L (98-107); CREATININE 1.1 mg/dL (0.6-1.0); GLUCOSE 231 mg/dL (74-106); POTASSIUM 3.7 mmol/L (3.5-5.1); SODIUM 149 mmol/L (136-145)
[2019-10-12 19:28] LABS: CO2 > 45 mmol/L (21-32)
[2019-10-12 19:34] LABS: TROPONIN-I <0.06 ng/mL (<0.06)
[2019-10-12 20:37] LABS: ABSOLUTE NEUTROPHILS 20.1 thou/uL (1.4-8.2)
[2019-10-12 20:38] LABS: ANISOCYTOSIS 1+; PLATELET ESTIMATE NORMAL
[2019-10-13] VITALS (57 sets, daily range): BP systolic 117–172; BP diastolic 61–90
[2019-10-13] MEDS ORDERED: NEPRO CARB STE237 ML PER TUBE (03:04)
--- NOTE | 2019-10-13 09:49 | NUR ---
Nutrition: When appropriate to resume tube feeds REC trial pt's usual regimen of glucerna 1.2 goal 55 mL/hr. Pt required scheduled reglan on recent admit due to difficulty with high residuals/tube feeding intolerance. May need to consider more concentrated formula/KUB if this occurs.
--- NOTE | 2019-10-13 12:34 | EKG ---
[facility] [place] [address] ELECTROCARDIOGRAM REPORT Name: JAJA CARRILLO Room #: 237-P ADM IN M.R.#: [id number] Admission: 10/12/19 Attend Phys: Susan Mcneil MD Discharge: Date of : 64 Report #: [id number] THIS REPORT FOR: cc: Selvin Styles MD, Christopher B. MD Lundgren,Ozzie Bennett MD [facility] ~ THIS REPORT FOR: //name// [facility] ED Test Date: 2019-10-12 Test Time: 18:39:53 Pat Name: JAJA CARRILLO Department: Room: [facility] Gender: F Director Clinical Data: [facility] : 1960 Requested By: Isreal Prince Order Number: [id number] MD: Ozzie Petit Measurements Intervals [place] Rate: 96 P: 76 HI: 108 QRS: -20 QRSD: 68 T: 55 QT: 367 QTc: 464 Interpretive Statements Sinus rhythm Borderline left axis deviation Low voltage RSR' in V1 or V2, right VCD Baseline wander in lead(s) V2 Compared to ECG 10/03/2019 13:15:45 No significant change was found Electronically Signed On 10-13-2019 8:53:06 CANDY ROLLER by Ozzie Petit [email or web address] <ELECTRONICALLY SIGNED> By: Ozzie Petit MD, [facility] 10/13/19 0853 [id number] Ozzie Petit MD, [facility] /EPI
--- NOTE | 2019-10-13 16:44 | NUR ---
Tube feeding initiated per provider's orders. Nepro was started at 1600 at 25 mls/h. Goal rate is 35 mls/h. PT was noted to have 50 cc residual of gastric content. Peg tube was flushed with 150 cc of water per tube feeding orders then nepro was initiated. PT appears to be tolerating tube feeding well. Tenderness was noted upon palpation of the abdomen. PEG tube site looks CDI. Nurse will continue to monitor.
[2019-10-14] VITALS (14 sets, daily range): BP systolic 130–159; BP diastolic 60–77
[2019-10-14 06:06] LABS: HEMATOCRIT 25.3 % (37.0-47.0); HEMOGLOBIN 8.1 gm/dL (12.0-15.0); MCH 29.5 pg (26.0-34.0); MCV 92.4 fL (80.0-100.0); RBC 2.74 mil/uL (4.20-5.00); RDW 16.4 % (10.5-14.5); WBC 12.6 thou/uL (4.0-11.0)
[2019-10-14 06:08] LABS: BUN 58 mg/dL (7-18); CALCIUM 8.4 mg/dL (8.5-10.1); CHLORIDE 103 mmol/L (98-107); POTASSIUM 3.2 mmol/L (3.5-5.1); SODIUM 149 mmol/L (136-145)
[2019-10-14 06:11] LABS: CO2 > 45 mmol/L (21-32)
[2019-10-14 06:15] LABS: ANION GAP 1 mmol/L (7-16); GLUCOSE 157 mg/dL (74-106)
--- NOTE | 2019-10-14 11:30 | NUR ---
chart review. cm notified by that pt will be dc today. pt from [facility]. pt trach vent. will need to be bagged on way over to [facility]. bedside nurse notified . bedside nurse to call report to [facility], 4s completing chart copy.
[2019-10-14] MEDS ORDERED: IPRAT-ALBUT 0.5-3 ML INH (11:35)
--- NOTE | 2019-10-14 11:39 | H ---
[facility] [place] [address] HISTORY AND PHYSICAL Name: JAJA CARRILLO Room #: 237-P ADM IN M.R.#: [id number] Admission: 10/12/19 Attend Phys: Susan Mcneil MD Discharge: Date of : 64 Report #: [id number] THIS REPORT FOR: //name// CC: Selvin Mcneil DATE OF SERVICE: 10/12/2019 CHIEF COMPLAINT: Shortness of breath. HISTORY OF PRESENT ILLNESS: The patient was admitted again from [facility] facility in respiratory distress. She had low oxygen saturations even with Ambu bag with respiratory therapy. She was redirected to the ER with O2 sats dropping into the 80s and ultimately required a tracheostomy tube change in ER. She recently had a prolonged hospital stay for chronic hypoxic hypercapnic respiratory failure with episodes of acute hypercapnia resulting in poor lung compliance, high ventilator volumes and respiratory acidosis. She was also recently treated for healthcare-related pneumonia. Her previous abdominal ascites had been worked up with paracentesis with cytology negative and a vaginal-pelvic ultrasound, which was unremarkable. Gynecology assessed her and there was no definitive pelvic mass to explain symptoms and at this point, she is just being treated supportively due to her major pulmonary disease. PAST MEDICAL HISTORY: History of GI bleed due to peptic ulcer. History of bilateral pulmonary embolus, 08/2018, chronic Eliquis use. Abdominal ascites, unclear etiology. Anasarca, hypertension, COPD emphysema type, chronic hypoxic hypercapnic respiratory failure, history of DVT in the left arm and anxiety, bipolar, history of multiple infections. PAST SURGICAL HISTORY: Unknown. FAMILY HISTORY: Unknown. SOCIAL HISTORY: Unknown. ALLERGIES: BROVANA, CODEINE, MOXIFLOXACIN. MEDICATIONS: Xanax, metoprolol, Eliquis, hydrocodone, Avycaz IV antibiotic, Protonix, minocycline. REVIEW OF SYSTEMS: She complains of feeling hungry. Denies headache, chest pain, shortness of breath, nausea, dysuria, myalgias, syncope. OBJECTIVE: VITAL SIGNS: Temperature 36.6, pulse 85, respirations 20, blood pressure 152/72, O2 sat 100% on the ventilator. [facility] [address] [place] [address] HISTORY AND PHYSICAL Name: JAJA CARRILLO Room #: 237-[facility] IN [facility].#: [id number] Admission: 10/12/19 Attend Phys: Susan Mcneil MD Discharge: Date of : 64 Report #: [id number] GENERAL: She is asleep, but easily arouses, opens her eyes, nods yes or no to answer questions. HEAD AND NECK: Unremarkable with a new trach. No bleeding. LUNGS: Distant breath sounds. HEART: Regular. ABDOMEN: Protuberant, soft, normoactive bowel sounds. No rebound or guarding. EXTREMITIES: 1+ edema throughout. LABORATORY REVIEW: White count was 20, hemoglobin 9.9, creatinine 1.1. ASSESSMENT: 1. Njvnx-ii-rdiuwcq hypercapnic hypoxic respiratory failure. 2. Tracheostomy dependent. 3. Ventilator dependent. 4. Chronic obstructive pulmonary disease. 5. Emphysema. 6. Healthcare-related pneumonia. 7. Anemia of chronic disease. 8. History of venous thromboembolism, remote history of chronic anticoagulation with Eliquis. PLAN: We will resume her home medications and antibiotics. Dr. Zimmer has assessed her. She has stabilized from a respiratory standpoint overnight with the change in tracheostomy tube. She remains critically ill with a poor prognosis due to poor ventilator compliance related to underlying emphysema and non-weanable ventilator situation. <ELECTRONICALLY SIGNED> By: Corky Gill MD 10/14/19 1139 1324 1406 Corky Gill MD /nt
--- NOTE | 2019-10-14 13:20 | NUR ---
PT DISCHARGING BACK TO [facility] FAXED DC ORDERS/SUMMARY TO FACILITY SPOKE WITH ESCOBAR IN ADM SHE RECEIVED DC ORDERS. TRANSPORTATION SET UP WITH [facility] PT IS VENT DEPENDENT FOR 1400 TODAY. LEFT MSG WITH PT'S DTR WITH TIME OF TRANSPORT. UNIT NOTIFIED AND CHART COPY PER US. RN TO CALL REPORT TO [phone].
--- NOTE | 2019-10-14 14:05 | NUR ---
PATIENT DISCHARGED TO [facility] WITH VENT SETTINGS UNCHANGED VIA [facility]. REPORT GIVEN TO EMS AND KATE AT THE FACILITY. PATIENT IS ALERT AND RESPONSIVE, ASSISTING IN SWABBING OUT MOUTH. PATIENT UPDATED TO THE POC KNOWN BY THIS NURSE. BELONGINGS SENT WITH PATIENT.
--- NOTE | 2019-10-14 15:10 | NUR ---
REMAINDER OF CHART FAXED TO FACILITY, [facility] VARIFIED BY PHONE.
--- NOTE | 2019-10-18 14:04 | D ---
[facility] [place] [address] DISCHARGE SUMMARY Name: JAJA CARRILLO Room #: Counts include 234 beds at the [facility] IN M.R.#: [id number] Admission: 10/12/19 Attend Phys: Susan Mcneil MD Discharge: 10/14/19 Date of : 64 Report #: [id number] THIS REPORT FOR: cc: Selvin Styles MD,Corky Pation MD, MD ~ THIS REPORT FOR: //name// CC: Selvin Mcneil DATE OF SERVICE: 10/14/2019 FINAL DIAGNOSES: 1. Vxycx-ui-kcgazxm hypercapnic hypoxic respiratory failure. 2. Chronic obstructive pulmonary disease. 3. Emphysema. 4. Anemia of chronic disease. 5. Healthcare-associated pneumonia. 6. Severe protein-calorie malnutrition. HOSPITAL COURSE: The patient was readmitted from the LTAC facility due to hypoxia. Her trach was changed in ER. This stabilized her situation overnight. Dr. Zimmer assessed her as well. She had no other interval complications. Her other medications and antibiotics were continued. DISPOSITION: She will return to [facility] facility. I have signed her electronic discharge orders, medications and instructions, should be under the care of Dr. Styles. <ELECTRONICALLY SIGNED> By: Corky Gill MD 10/18/19 1404 1138 1145 Corky Gill MD /nt
== END 2019-10-14 14:05 | DRG 208 ==
LOC: ER 18:20 → EROBS 19:56 → ICU 21:06
PROVIDERS: Emergency Medicine; Internal Medicine Geriatric Medicine; ADMIT Internal Medicine
PROC: 5A1945Z Respiratory Ventilation, 24-96 Consecutive Hours (ICD-10-PCS; principal; 2019-10-12)
PROC: 0B21XFZ Change Tracheostomy Device in Trachea, External Approach (ICD-10-PCS; principal; 2019-10-12)
DX: J96.21 Acute and chronic respiratory failure with hypoxia (principal); J18.9 Pneumonia, unspecified organism; J95.03 Malfunction of tracheostomy stoma; N17.9 Acute kidney failure, unspecified; J96.22 Acute and chronic respiratory failure with hypercapnia; I10 Essential (primary) hypertension; K21.9 Gastro-esophageal reflux disease without esophagitis; E11.9 Type 2 diabetes mellitus without complications; F41.9 Anxiety disorder, unspecified; F31.9 Bipolar disorder, unspecified; I48.91 Unspecified atrial fibrillation; J43.9 Emphysema, unspecified; D63.8 Anemia in other chronic diseases classified elsewhere; Y95 Nosocomial condition; Y83.2 Surgical operation with anastomosis, bypass or graft as the cause of abnormal reaction of the patient, or of later complication, without mention of misadventure at the time of the procedure; Y92.230 Patient room in hospital as the place of occurrence of the external cause; Z86.718 Personal history of other venous thrombosis and embolism; Z87.11 Personal history of peptic ulcer disease; Z86.711 Personal history of pulmonary embolism; Z79.01 Long term (current) use of anticoagulants; Z79.899 Other long term (current) drug therapy; Z88.1 Allergy status to other antibiotic agents; Z88.6 Allergy status to analgesic agent; Z88.8 Allergy status to other drugs, medicaments and biological substances; Z68.25 Body mass index [BMI] 25.0-25.9, adult; Z86.74 Personal history of sudden cardiac arrest
CPT/HCPCS: 10078

== ENCOUNTER 2019-10-17 16:01 | Inpatient (IN) | payer OTHER ==
[~2019-10-17] VITALS: Ht 170.2 cm; Wt 65.9 kg
[~2019-10-17 16:01] MED LIST changes: +IPRAT-ALBUT 0.5-3 ML INH; +NEPRO CARB STE237 ML PER TUBE
[2019-10-17 16:03] VITALS: BP 157/86
[2019-10-17 16:26] LABS: BE(vivo) 13.1 mmol/L (-2 to +3); HCO3 43.4 mmol/L (22.0-26.0); PCO2 104.1 mmHg (35.0-45.0); PO2 61.6 mmHg (80.0-100.0); pH 7.238 (7.360-7.450); sO2 85.1 % (92.0-98.0)
[2019-10-17 16:27] LABS: ABSOLUTE NEUTROPHILS 18.9 thou/uL (1.4-8.2); BASOPHILS 0.2 % (0.0-2.0); EOSINOPHILS 0.2 % (0.0-3.0); HEMATOCRIT 27.2 % (37.0-47.0); HEMOGLOBIN 8.3 gm/dL (12.0-15.0); LYMPHOCYTES 0.5 % (24.0-44.0); MCH 29.4 pg (26.0-34.0); MCHC 30.4 g/dL (28.0-37.0); MCV 96.7 fL (80.0-100.0); PLATELET COUNT 164 thou/uL (150-400); POLYS 98.1 % (36.0-66.0); RBC 2.81 mil/uL (4.20-5.00); RDW 17.6 % (10.5-14.5); WBC 19.3 thou/uL (4.0-11.0)
[2019-10-17 16:38] LABS: URINE BILIRUBIN NEGATIVE (Negative); URINE BLOOD 3+ (Negative); URINE CLARITY SL CLOUDY; URINE COLOR YELLOW; URINE GLUCOSE-RANDOM* 1+ (Negative); URINE KETONES NEGATIVE (Negative); URINE LEUKOCYTES-REFLEX TRACE (Negative); URINE NITRITE-REFLEX NEGATIVE (Negative); URINE PROTEIN (DIPSTICK) 2+ (Negative); URINE UROBILINOGEN 0.2 E.U./dl (0.2-1.0)
[2019-10-17 16:52] LABS: ALBUMIN 2.7 g/dL (3.4-5.0); BUN 55 mg/dL (7-18); CALCIUM 8.8 mg/dL (8.5-10.1); CHLORIDE 99 mmol/L (98-107); CREATININE 1.1 mg/dL (0.6-1.0); GLUCOSE 282 mg/dL (74-106); POTASSIUM 3.4 mmol/L (3.5-5.1); SGOT 16 U/L (15-37); SGPT 24 U/L (30-65); SODIUM 144 mmol/L (136-145); TOTAL BILIRUBIN 0.7 mg/dL (<0.1-1.0); TOTAL PROTEIN 6.7 g/dL (6.4-8.2)
[2019-10-17 16:55] LABS: CO2 > 45 mmol/L (21-32)
[2019-10-17 16:57] LABS: YEAST-REFLEX Present (None Seen)
[2019-10-17 16:58] LABS: SQUAMOUS 0-3 Few /LPF (0-3); URINE WBC-REFLEX 6-15 Few /HPF (0-5)
[2019-10-17 16:59] LABS: BACTERIA-REFLEX None Seen /HPF (None Seen); CRYSTALS None Seen /LPF (None Seen); FINE GRANULAR CASTS 4-10 Moderate /LPF (None Seen); MUCUS >6 Heavy strn/LPF (None Seen); URINE RBC 3-10 Few /HPF (0-2)
[2019-10-17 18:06] LABS: BE(vivo) 11.1 mmol/L (-2 to +3); HCO3 39.9 mmol/L (22.0-26.0); PO2 93.5 mmHg (80.0-100.0); sO2 95.8 % (92.0-98.0)
[2019-10-17 18:07] LABS: PCO2 85.9 mmHg (35.0-45.0); pH 7.285 (7.360-7.450)
--- NOTE | 2019-10-17 22:00 | NUR ---
[address] PT OF [address] COBY FELICIANO ADMITTED TO ICU FROM ER AND [facility] WITH DX OF RESP FAILURE AND DECREASE LOC. PT IS CURRENTLY AWAKE AND ALERT. FOLLOWS COMMANDS. WRITING NOTES. WANTS HER XANAX. TRACHED AND VENTED 50 % O2 PEG TUBE IN PLACE AND CLAMPED. AMAYA IN PLACE WITH GOOD URIANRY OUTPUT. DENIES PAIN. SINUS RHYTHM. WILL CONT TO MONITOR.
[2019-10-18] VITALS (17 sets, daily range): BP systolic 152–176; BP diastolic 73–91
--- NOTE | 2019-10-18 06:00 | NUR ---
RESTING QUIETLY. HAD A VERY LARGE BROWN/YELLOW LIQUID STOOL. 900 CC UO THIS SHIFT. REMAINS TRACHED AND VENTED. SCANT AMT OF SECRETIONS. BATHED EARLIER. WILL CONT TO MONITOR.
[2019-10-18 08:01] LABS: BE(vivo) 16.6 mmol/L (-2 to +3); HCO3 43.2 mmol/L (22.0-26.0); PO2 63.1 mmHg (80.0-100.0); pH 7.417 (7.360-7.450); sO2 91.5 % (92.0-98.0)
[2019-10-18 08:02] LABS: PCO2 68.6 mmHg (35.0-45.0)
[2019-10-18 08:07] LABS: HEMOGLOBIN 7.1 gm/dL (12.0-15.0); MCH 29.2 pg (26.0-34.0); MCHC 30.7 g/dL (28.0-37.0); RBC 2.42 mil/uL (4.20-5.00); RDW 16.9 % (10.5-14.5); WBC 13.3 thou/uL (4.0-11.0)
[2019-10-18 08:11] LABS: CALCIUM 8.8 mg/dL (8.5-10.1); CREATININE 1.1 mg/dL (0.6-1.0)
--- NOTE | 2019-10-18 08:15 | NUR ---
chart review. pt was just dc back to [facility] last week. she was had at least 3 visit to hospital in last few weeks. pt was in bed with eyes open during visit. tv on. pt was answering yes and no question. pt has trach and peg, on iv medication. will cont following as needed for dc needs. tried calling daughter jason with no answer x 2.
--- NOTE | 2019-10-18 12:10 | NUR ---
When tube feeds ready to start, recommend change formula to glucerna 1.2 at goal of 55ml/hr
[2019-10-18 15:30] LABS: HEMOGLOBIN 6.9 gm/dL (12.0-15.0); RDW 16.8 % (10.5-14.5); WBC 13.7 thou/uL (4.0-11.0)
[2019-10-18 15:31] LABS: HEMATOCRIT 22.1 % (37.0-47.0); MCH 29.2 pg (26.0-34.0); MCV 94.2 fL (80.0-100.0); RBC 2.35 mil/uL (4.20-5.00)
[2019-10-18 15:38] LABS: BUN 54 mg/dL (7-18); CALCIUM 8.8 mg/dL (8.5-10.1); CHLORIDE 100 mmol/L (98-107); CREATININE 1.2 mg/dL (0.6-1.0); GLUCOSE 140 mg/dL (74-106); SODIUM 146 mmol/L (136-145)
[2019-10-18 15:40] LABS: POTASSIUM 2.8 mmol/L (3.5-5.1)
[2019-10-18 15:41] LABS: CO2 > 45 mmol/L (21-32)
[2019-10-18 15:42] LABS: INR 1.2; PROTIME 12.7 Seconds (9.3-11.4)
--- NOTE | 2019-10-18 18:15 | NUR ---
PATIENT PROGRESSING TOWARDS OUTCOME GOALS EVIDENT BY RESTING QUIETLY AFTER PAIN MEDS GIVEN. NO RESIDUALS NOTED PER GASTRIC TUBE AND TUBE FEEDING OF NEPRO STARTED. KCL AND MAG GIVEN PER PROTOCOL. FAMILY IN TO VISIT AND REASSURANCE GIVEN. ULTRA SOUND NOTIFIED OF ULTRA SOUND GUIDED PARACENTESIS.
[2019-10-19] VITALS (23 sets, daily range): BP systolic 110–182; BP diastolic 64–94
[2019-10-19 06:45] LABS: CALCIUM 8.5 mg/dL (8.5-10.1); CREATININE 1.2 mg/dL (0.6-1.0); POTASSIUM 3.4 mmol/L (3.5-5.1)
[2019-10-19 12:43] LABS: CLARITY HAZY; COLOR YELLOW; SOURCE ABDOMINAL FLUID; TOTAL VOLUME 60 mL
[2019-10-19 13:10] LABS: BF NUCLEATED CELLS 69; BF RBC 143
--- NOTE | 2019-10-19 13:44 | H ---
[facility] [place] [address] HISTORY AND PHYSICAL Name: JAJA CARRILLO Room #: 242-P ADM IN M.R.#: [id number] Admission: 10/17/19 Attend Phys: Jaskaran Argueta Discharge: Date of : 64 Report #: [id number] THIS REPORT FOR: //name// CC: Selvin Styles DATE OF SERVICE: 10/17/2019 CHIEF COMPLAINT: Shortness of breath. HISTORY OF PRESENT ILLNESS: The patient is a 58-year-old female sent back to the Emergency Room from [facility] for evaluation of unresponsiveness and hypoxia. Yesterday afternoon this facility noted that she was minimally responsive and had diminished breath sounds throughout. O2 saturations were in the upper 80s on the ventilator, but an ABG was performed, revealing pCO2 of 130 per reports. Multiple nebulized treatments were attempted with no improvement in her neurologic symptoms. At that point, she was sent to the Emergency Room. EMS assisted her respirations by bag valve and blood pressure and heart rate were stable upon arrival. Her blood sugar was around 300, but was unresponsive. So far overnight with supportive measures, she is now is alert and communicating with friends at the bedside and trying to write on a marker board. PAST MEDICAL HISTORY: COPD with significant emphysema component. She has chronic hypercapnic hypoxic respiratory failure and has been ventilator dependent since the fall of 2018. She has had several admissions here recently for hypercapnic episodes. She has had a history of bilateral PE, DVT with chronic Eliquis use, history of ascites uncharacterized source, remote history of pelvic abscess but never had pelvic abscess treated at an outlying facility, history of esophageal and gastric ulcers with previous bleeding, history of diabetes type 2, history of paroxysmal AFib. PAST SURGICAL HISTORY: PEG and trach. FAMILY HISTORY: Noncontributory. SOCIAL HISTORY: Remote tobacco use, unknown alcohol use. She has been in a care facility since being placed on the ventilator since at least June 2019. ALLERGIES: BROVANA, CODEINE, MOXIFLOXACIN. MEDICATIONS: Alprazolam, Lopressor, Eliquis, methylprednisolone, DuoNeb, Protonix, Reglan, Avycaz, fluconazole, minocycline. REVIEW OF SYSTEMS: She denies any nausea or abdominal pain, shortness of breath or chest pain. OBJECTIVE: [address] [address] HISTORY AND PHYSICAL Name: JAJA CARRILLO Room #: 242-P [facility] IN M.R.#: [id number] Admission: 10/17/19 Attend Phys: Jaskaran Argueta Discharge: Date of : 64 Report #: [id number] VITAL SIGNS: Temperature 36.9, pulse 100, respirations 17, blood pressure 176/85, O2 sat 97% on the ventilator. GENERAL: She is awake and alert, communicates. HEAD AND NECK: Unremarkable. Trach in place. LUNGS: Distant breath sounds anteriorly. HEART: Regular. No murmur. ABDOMEN: Protuberant, soft, normoactive bowel sounds. EXTREMITIES: No cyanosis or clubbing. Arms have 2+ edema. NEUROLOGIC: She moves all extremities. She follows commands. LABORATORY DATA: Today ABG with pH 7.4, pCO2 of 68. White count 13, hemoglobin 7. Potassium 3, CO2, venous 44, BUN 55, creatinine 1.1. CT abdomen reveals ascites, anasarca, small pleural effusions and emphysema. ASSESSMENT: 1. Amtrm-fr-pjhkrbk hypercapnic respiratory failure. 2. Chronic obstructive pulmonary disease. 3. Emphysema. 4. Abdominal ascites. 5. Anasarca. 6. Anemia of chronic disease. 7. Severe protein-calorie malnutrition, albumin 2.7. 8. Hypokalemia. 9. Healthcare-associated pneumonia. PLAN: She has been admitted into ICU with continued supportive measures. Dr. Zimmer has been consulted and I asked Dr. Kirt Styles to follow her. I will order an abdominal paracentesis therapeutic at this point. Otherwise, full supportive measures in place despite a grave prognosis given her significant pulmonary disease with no improvement despite prolonged multiple hospitalizations over the last 6 weeks. <ELECTRONICALLY SIGNED> By: Corky Gill MD 10/19/19 1344 1405 1514 Corky Gill MD /nt
[2019-10-19 14:47] LABS: BF NEUTROPHILS 3
--- NOTE | 2019-10-19 16:38 | NUR ---
PT REMAINS ON THE VENT. SCDS IN PLACE 3 PLUS GENERALIZED EDEMA NOTED. FOLLOWS COMMANDS. REPORTS GENERALIZED PAIN AND MEDS GIVEN FOR DISCOMFORT. REPOSITION AND TURN. ULTRASOUND PERICENTESIS TODAY. DONE PER DR. HARE. WILL CONTINUE ON NURSING CARE TO PROGRESS TOWARDS GOALS AND TREATMENTS AT THIS TIME WITH NURSING CARE.
--- NOTE | 2019-10-19 19:37 | NUR ---
DR MCCARTHY IN ORDERED PICC TO BE REMOVED AND TO REPLACE. PT HAS HX OF DVT AND PE. PT CURRENTLY HAD NONOCCLUSIVE THROMBUS R BRACHIAL FOUND ON US 09/26/19. PT HAS BILATERAL EDEMA. DISCUSSED WITH PT VERY HIGH RISK DVT IF PICC REPLACED IN L ARM. RECOMMENDED FOR RN TO TALK TO FOR TICC OR CENTRAL LINE BY IR. IN AM. PT UNABLE TO LAY FLAT FOR CENTRAL LINE INSERTION BY IV TEAM. 2 PIV'S STARTED THEN PICC REMOVED
[2019-10-20] VITALS (24 sets, daily range): BP systolic 140–169; BP diastolic 69–95
--- NOTE | 2019-10-20 05:36 | NUR ---
NO CHANGES OVERNIGHT. PT RESTARTED ON TUBE FEEDINGS YESTERDAY EVENING, AND HAS BEEN TOLERATING WELL WITH LOW RESIDUALS. TUBE FEEDING RATE NOW AT GOAL. PT HAS BEEN OOZING BLOOD&SEROUS FLUID FROM PARACENTESIS SITE ON LEFT SIDE OF ABDOMEN. THE AREA WAS RE-DRESSED X3 WITH GAUZE. IT APPEARS THOUGH THE AMOUNT OF FLUID OOZING OUT IS SLOWING DOWN. PT IS PROGRESSING. WILL CONTINUE TO MONITOR.
[2019-10-20 05:44] LABS: CALCIUM 8.6 mg/dL (8.5-10.1); CREATININE 1.2 mg/dL (0.6-1.0)
[2019-10-20 08:58] LABS: SOURCE ABDOMINAL
[2019-10-20 13:10] LABS: BODY FLUID ALBUMIN 1.5 g/dL (Not Estab.); BODY FLUID AMYLASE 9 U/L (()); BODY FLUID GLUCOSE 128 mg/dL (()); BODY FLUID LDH 85 IU/L (()); BODY FLUID PROTEIN 2.7 g/dL (())
--- NOTE | 2019-10-20 19:50 | NUR ---
Report given to oncoming nurse. Call placed to Dr Styles's answering service regarding elevated blood glucose-currently no sliding scale. Tolerated tube feeding. No vent weaning today. Continue to work toward goals.
[2019-10-21] VITALS (24 sets, daily range): BP systolic 117–172; BP diastolic 60–93
--- NOTE | 2019-10-21 06:39 | NUR ---
PATIENT ALERT AND ABLE TO MOUTH NEEDS. PAIN CONTROLLED WITH MEDICATION. SINUS TACHYCARDIA ON TENANT RELATIONS COORDINATOR. PATIENT TOLERATING TUBE FEEDING AT GOAL RATE OF 35/HR WITH MINIMAL RESIDUALS. AMAYA PATIENT. LEFT LOWER PARACENTESIS SITE DRESSING INTACT. PATIENT REFUSES FREQUENT ORAL CARE, ATTEMPTED TO SWAB MOUTH AND PATIENT CLENCHES JAW. PATIENT EDUCATED ON THE IMPORTANCE OF ORAL CARE WHILE ON VENTILATOR. NO SIGN OF ACUTE DISTRESS NOTED AT THIS TIME. WILL CONTINUE TO MONITOR.
[2019-10-21 12:39] LABS: RBC 1.74 mil/uL (4.20-5.00); RDW 16.9 % (10.5-14.5)
[2019-10-21 12:40] LABS: MCH 30.5 pg (26.0-34.0); MCHC 32.7 g/dL (28.0-37.0); MCV 93.1 fL (80.0-100.0); WBC 7.9 thou/uL (4.0-11.0)
[2019-10-21 12:41] LABS: CALCIUM 8.6 mg/dL (8.5-10.1); CREATININE 1.4 mg/dL (0.6-1.0); HEMOGLOBIN 5.4 gm/dL (12.0-15.0); POTASSIUM 3.6 mmol/L (3.5-5.1)
[2019-10-21 12:42] LABS: HEMATOCRIT 16.3 % (37.0-47.0)
[2019-10-21 18:11] LABS: WBC 8.4 thou/uL (4.0-11.0)
[2019-10-21 18:13] LABS: MCH 30.2 pg (26.0-34.0); MCHC 32.3 g/dL (28.0-37.0); MCV 93.4 fL (80.0-100.0); RBC 1.82 mil/uL (4.20-5.00); RDW 16.5 % (10.5-14.5)
[2019-10-21 18:18] LABS: HEMATOCRIT 16.9 % (37.0-47.0); HEMOGLOBIN 5.5 gm/dL (12.0-15.0)
--- NOTE | 2019-10-21 19:30 | NUR ---
Remains on vent with trach, no bleeding noted. Low hemaglobin/hemacrite reported to Dr Styles with orders for AM repeat noted. Patient sleeping after pain meds and watching TV today. Progressing towards outcome goals
[2019-10-22] VITALS (25 sets, daily range): BP systolic 134–184; BP diastolic 64–95
[2019-10-22 04:25] LABS: RDW 17.3 % (10.5-14.5)
[2019-10-22 04:27] LABS: MCH 29.9 pg (26.0-34.0); MCHC 31.7 g/dL (28.0-37.0); MCV 94.4 fL (80.0-100.0); RBC 1.99 mil/uL (4.20-5.00); WBC 15.1 thou/uL (4.0-11.0)
[2019-10-22 04:35] LABS: HEMATOCRIT 18.8 % (37.0-47.0)
[2019-10-22 05:02] LABS: ALBUMIN 2.4 g/dL (3.4-5.0); CALCIUM 8.2 mg/dL (8.5-10.1); CREATININE 1.5 mg/dL (0.6-1.0); POTASSIUM 3.6 mmol/L (3.5-5.1); TOTAL BILIRUBIN 0.5 mg/dL (<0.1-1.0)
--- NOTE | 2019-10-22 08:07 | NUR ---
chart reviewed. report from bedside nurse, pt hgb down in 6's, going to get 1 unit prbc today. still on vent trach. iv abx. cm called daughter mervat dpoa x 2 and no answer. will cont following as needed for dc needs.
[2019-10-22 16:18] LABS: HEMATOCRIT 25.2 % (37.0-47.0); HEMOGLOBIN 7.9 gm/dL (12.0-15.0); MCH 28.2 pg (26.0-34.0); MCHC 31.6 g/dL (28.0-37.0); RBC 2.82 mil/uL (4.20-5.00); RDW 19.1 % (10.5-14.5); WBC 12.6 thou/uL (4.0-11.0)
[2019-10-22 16:19] LABS: MCV 89.3 fL (80.0-100.0)
--- NOTE | 2019-10-22 19:20 | NUR ---
0700 report received vss see charting. received iu pc tolerated well. updated sister to poc and reported to pm rn.
[2019-10-23] VITALS (18 sets, daily range): BP systolic 133–167; BP diastolic 65–91
[2019-10-23 04:17] LABS: ABSOLUTE NEUTROPHILS 9.2 thou/uL (1.4-8.2); BASOPHILS 0.4 % (0.0-2.0); EOSINOPHILS 0.1 % (0.0-3.0); HEMATOCRIT 23.9 % (37.0-47.0); HEMOGLOBIN 7.8 gm/dL (12.0-15.0); LYMPHOCYTES 3.4 % (24.0-44.0); MCH 29.2 pg (26.0-34.0); MCHC 32.7 g/dL (28.0-37.0); MCV 89.4 fL (80.0-100.0); MONOCYTES 4.7 % (1.0-8.0); PLATELET COUNT 150 thou/uL (150-400); POLYS 91.4 % (36.0-66.0); RBC 2.68 mil/uL (4.20-5.00); RDW 19.2 % (10.5-14.5)
[2019-10-23 04:27] LABS: CALCIUM 8.9 mg/dL (8.5-10.1); CREATININE 1.6 mg/dL (0.6-1.0); POTASSIUM 3.6 mmol/L (3.5-5.1)
--- NOTE | 2019-10-23 17:01 | NUR ---
REPORT GIVEN TO 3W RN. PATIENT WITH TRACH AND VENT. AC16/330/5/50. SMALL AMOUNT OF BLOOD TINGED SPUTUM AT TIMES. COMMUNICATES WELL BY MOUTHING WORDS, NODDING HEAD YES/NO AND USING DRY ERASE BOARD. O X 4/ SR/ST ON MONITOR, NO ECTOPY. WILL TRANSFER IN STABLE CONDITION WITH RN AND RT
--- NOTE | 2019-10-23 18:36 | NUR ---
PT TRANSFERRED FROM ICU @ 1745...ISOLATION MDR ...GLUCERNA 1.2 @ 55/HOUR WHICH IS GOAL...
[2019-10-24 04:38] VITALS: BP 166/89
[2019-10-24 07:07] VITALS: BP 164/87
--- NOTE | 2019-10-24 07:52 | NUR ---
AROUND MIDNIGHT PATIENT REQUESTED THAT NURSE TURN OFF HER TUBE FEED WHILE SHE IS SLEEPING. NURSE ASSESSED FOR NAUSEA WHICH PATIENT STATED SHE DID NOT HAVE, AND INFORMED PATIENT THAT HER RESIDUAL WAS ZERO AND IT WOULD PROBABLY BE A SMARTER IDEA TO KEEP FEED GOING. PATIENT STILL REFUSED AND HAD NURSE TURN TUBE FEED OFF.
[2019-10-24 11:16] VITALS: BP 173/102
--- NOTE | 2019-10-24 15:18 | NUR ---
PT RESTING FAIRLY WELL TODAY...SUCTION PRN WITH DK RED DRAINAGE NOTED...WILL MONITOR
[2019-10-24 15:53] VITALS: BP 151/91
[2019-10-24 19:30] VITALS: BP 185/105
[2019-10-25] VITALS (7 sets, daily range): BP systolic 142–171; BP diastolic 82–102
--- NOTE | 2019-10-25 05:00 | NUR ---
Pt. medicated for pain and anxiety with some relief. She slept intermittently during the night.Refused to reposition q2 hrs and only requested to turn when she is uncomfortable. Maintaining O2 sat in the mid 90's on current vent settings at 35% FIO2. Tolerating tube feeding well with very minimal gastric residual. Bed alarm on for safety. Making progress towards care plan goals.
[2019-10-25 06:10] LABS: CALCIUM 8.6 mg/dL (8.5-10.1); CREATININE 1.7 mg/dL (0.6-1.0); POTASSIUM 4.2 mmol/L (3.5-5.1)
--- NOTE | 2019-10-25 15:38 | NUR ---
SW reviewed chart and spoke with nursing and attending physician. Discharge back to [facility] is anticipated for tomorrow. SW faxed clinical updates to [facility] intake for review. SW left voice message for pt's dtr, Angelica, to provide update and notify of anticipated discharge timeframe. SW is following to assist as needed with discharge planning.
--- NOTE | 2019-10-25 18:00 | NUR ---
PT REPORTS PAIN TO TRACHE SITE and LT ABDOMEN...MEDICATED WITH FAIRLY GOOD RELIEF W/ NORCO PER PEG...
[2019-10-26 03:37] VITALS: BP 164/87
--- NOTE | 2019-10-26 06:47 | NUR ---
Pt is A&0x4. Writes on white board and mouths words appropriately. C/o pain to left abdomen x2. Medicated with hydrocodone with adequate relief of pain obtained. She fell back asleep. Lungs are diminished. Unlabored on current ventilator settings tonight. Fio2 40% throughout the night. Pt gets SOB while she is lying on her side with head down for pericare and bed change. Inc. of liquid stool in lg amts. Barrier cream applied. Enc pt to turn but she refuses at times. Feet and arms are elevated on pillows. Resting quietly after hydrocodone for abdominal pain. No s/s distress. Left abdominal dressing tis clean dry and intact.
[2019-10-26 07:22] VITALS: BP 142/87
--- NOTE | 2019-10-26 14:06 | NUR ---
DISCHARGE NOTE: SW reviewed chart and spoke with nursing and attending physician. Pt is medically stable for discharge back to [facility] today. SW faxed finalized discharge orders/summary to [facility]. SW notified [facility] liaison. Request for 1700 ambulance transportation. Ambulance scheduled for 1700 via [facility]. MANSI spoke with pt's dtr, Angelica, via phone to provide update and notify of transportation time and discharge. Pt's dtr is aware and agreeable with discharge plan. Chart copy requested. Nursing provided with number to call report. No additional SW needs identified at this time, but is available to assist should needs arise.
[2019-10-26 15:32] VITALS: BP 169/95
--- NOTE | 2019-10-26 15:45 | NUR ---
ASSUMED PATIENT CARE AT 0700. ALERT. TOLERATED ON VENT. SUCTION NEED. GENERLIZED EDEMA 3+. NO RESIDUAL NOTED FROM PEG TUBE. REPORT GEMULU TO [facility]. ROBERT ALVAREZ DC'D AT 1700.
--- NOTE | 2019-10-27 17:07 | PATH ---
[facility] [address] [place] [address] PATHOLOGY RPT PROCEDURE Name: JAJA CARRILLO Room #: 351-P DIS IN M.R.#: [id number] Admission: 10/17/19 Date of : 64 Discharge: 10/26/19 Report #: [id number] Path Case #: [id number] Note [facility] Accession Number: [id number] TESTS RESULT FLAG UNITS REF RANGE LAB Clinician Provided Cytology Information No. of containers..01 Other (Miscellaneous) Source: ABDOMINAL FLUID DIAGNOSIS: 02 ABDOMINAL FLUID NEGATIVE FOR MALIGNANT EPITHELIAL CELLS. SCANT CELLULARITY. THIS INTERPRETATION INCLUDES EVALUATION OF A CELL BLOCK. Pathologist ICD10: 02 J18.9 Signed out by: 02 Jessie Angeles MD, Pathologist NPI- [id number] Performed by: Rosendo Raymond, Poultry [employer] ([facility]) Gross description: 01 15ML, CLEAR YELLOW, 1 TP 1 CB /LCS 10/19/2019 1627 Local FLAG LEGEND: L-Low Normal,H-High Normal,LL-Alert Low,HH-Alert High <-Panic Low,>-Panic High,A-Abnormal,AA-Critical Abnormal Performed at: [address] [place] [address] Jadon Wadsworth MD, [address] [id number] Jessie Angeles MD, Specimen Comment: A courtesy copy of this report has been sent to [phone] Specimen Comment: Report sent to / DR FELICIANO Specimen Comment: A duplicate report has been generated due to demographic updates. Performed at: [address], [place], [place] [id number] MD Jadon Wadsworth MD Phone: [phone]
--- NOTE | 2019-11-05 15:27 | EKG ---
[facility] [place] [address] ELECTROCARDIOGRAM REPORT Name: JAAJ CARRILLO Room #: 351-P [facility] IN M.R.#: [id number] Admission: 10/17/19 Attend Phys: Jaskaran Argueta Discharge: 10/26/19 Date of : 64 Report #: [id number] THIS REPORT FOR: cc: Selvin Styles MD, Christopher B. 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
== END 2019-10-26 18:28 | DRG 207 ==
LOC: ER 16:01 → EROBS 18:09 → ICU 18:09 → 3W 18:09 → ICU 22:09 → 3W 10-23 17:55
PROVIDERS: Emergency Medicine; Internal Medicine; Internal Medicine Geriatric Medicine; Internal Medicine Pulmonary Disease; Pediatrics; ADMIT Internal Medicine
DX: J18.9 Pneumonia, unspecified organism (principal); R65.11 Systemic inflammatory response syndrome (SIRS) of non-infectious origin with acute organ dysfunction; J96.22 Acute and chronic respiratory failure with hypercapnia; J96.21 Acute and chronic respiratory failure with hypoxia; E43 Unspecified severe protein-calorie malnutrition; G40.89 Other seizures; R18.8 Other ascites; N17.9 Acute kidney failure, unspecified; J91.8 Pleural effusion in other conditions classified elsewhere; F32.9 Major depressive disorder, single episode, unspecified; I10 Essential (primary) hypertension; K21.9 Gastro-esophageal reflux disease without esophagitis; E11.9 Type 2 diabetes mellitus without complications; D63.8 Anemia in other chronic diseases classified elsewhere; F41.9 Anxiety disorder, unspecified; J43.9 Emphysema, unspecified; D64.9 Anemia, unspecified; E87.6 Hypokalemia; I48.91 Unspecified atrial fibrillation; Z79.899 Other long term (current) drug therapy; Z79.891 Long term (current) use of opiate analgesic; Z86.718 Personal history of other venous thrombosis and embolism; Z79.01 Long term (current) use of anticoagulants; Z87.01 Personal history of pneumonia (recurrent); Z87.891 Personal history of nicotine dependence; Z86.711 Personal history of pulmonary embolism; Z93.1 Gastrostomy status; Z88.1 Allergy status to other antibiotic agents; Z88.5 Allergy status to narcotic agent; Z93.0 Tracheostomy status; Z68.22 Body mass index [BMI] 22.0-22.9, adult
CPT/HCPCS: 10078; 10879; 85076